=== PATIENT | male | born 1940 | race Caucasian/White ===

== ENCOUNTER 2016-10-07 16:17 | Inpatient (IN) | payer OTHER, MEDICARE ==
[2016-10-07] MEDS ORDERED: HYDROmorphONE/DILAUDID 1 MG/ML SYR ONE (16:47)
--- NOTE | 2016-10-07 16:54 | DX ---
Left Hip , 2 portable views History: Pain post trauma. Fall on ice. Findings: The femoral head is well rounded and normally located. No fracture or dislocation is identi fied. SI joints and pubic symphysis are normally aligned. The right L5 vertebral body is transitional . Impression: Nothing acute identified. 2. Left Knee, 5 views including a sunrise view History: Pain post fall on ice Findings: There is a small triangular avulsion avulsion off the superior patellar pole. The patella r emains in anatomic position. The fragment is approximately 2 cm above and posterior to its [place] loc ation. The knee joint is normally aligned. There is dense atherosclerotic vascular calcification of t he distal thigh and knee and upper calf. Impression: Quadriceps tendon avulsion.
--- NOTE | 2016-10-07 16:54 | DX ---
Left Hip , 2 portable views History: Pain post trauma. Fall on ice. Findings: The femoral head is well rounded and normally located. No fracture or dislocation is identi fied. SI joints and pubic symphysis are normally aligned. The right L5 vertebral body is transitional . Impression: Nothing acute identified. 2. Left Knee, 5 views including a sunrise view History: Pain post fall on ice Findings: There is a small triangular avulsion avulsion off the superior patellar pole. The patella r emains in anatomic position. The fragment is approximately 2 cm above and posterior to its [place] loc ation. The knee joint is normally aligned. There is dense atherosclerotic vascular calcification of t he distal thigh and knee and upper calf. Impression: Quadriceps tendon avulsion.
[2016-10-07] MEDS ORDERED: HYDROmorphONE/DILAUDID 1 MG/ML SYR IVP ONE (17:05)
--- NOTE | 2016-10-07 17:12 | EDPHY ---
H & P Stated Complaint: Left hip and knee pain Time Seen by Provider: 10/07/16 16:18 HPI/ROS: CHIEF COMPLAINT: Left knee and hip pain, inability to extend left leg HISTORY OF PRESENT ILLNESS: The patient presents to the ED with complaints of left knee and hip pain following a mechanical fall. The patient reportedly slipped and fell on ice. Since that time he has had fairly severe pain and swelling around his left knee. He denies focal numbness or weakness. He has no complaints of headache, neck pain, chest pain or difficulty breathing. He did sustain a small abrasion to the bridge of his nose from his glasses. The patient does have a remote history of atrial fibrillation but is not anticoagulated. He is currently being evaluated for surgical intervention for prostate cancer. REVIEW OF SYSTEMS: A comprehensive 10 point review of systems is otherwise negative aside from elements mentioned in the history of present illness. Source: Patient Exam Limitations: No limitations - Personal History Current Tetanus Diphtheria and Acellular Pertussis (TDAP): Yes - Medical/Surgical History Hx Asthma: No Hx Chronic Respiratory Disease: No Hx Diabetes: No Hx Cardiac Disease: No Hx Renal Disease: No Hx Cirrhosis: No Hx Alcoholism: No Hx HIV/AIDS: No Hx Splenectomy or Spleen Trauma: No - Social History Smoking Status: Never smoked - Physical Exam Exam: General Appearance: Alert, no distress Head: Atraumatic Eyes: Pupils equal, round, reactive ENT, Mouth: Superficial abrasion noted to the bridge of the nose Neck: Nontender, trachea midline Respiratory: No chest wall tender, subcutaneous air, lungs clear bilaterally Cardiovascular: Regular rate and rhythm Abdomen: Abdomen is soft and nontender, pelvis stable Skin: No lacerations, No abrasion Back: No midline T/L/S pain Extremities: Tenderness to palpation and swelling over the lateral aspect of the left thigh, inability to extend left leg secondary to pain Neurological: GCS 15, 5/5 strength noted all 4 extremities with the exception of extension left knee Constitutional: Initial Vital Signs Temperature (C) 36.7 C 10/07/16 16:26 Heart Rate 67 10/07/16 16:26 Respiratory Rate 16 10/07/16 16:26 Blood Pressure 159/95 H 10/07/16 16:26 O2 Sat (%) 93 10/07/16 16:26 O2 Delivery Mode Room Air Allergies/Adverse Reactions: No Known Allergies Allergy (Unverified 04/02/15 09:21) Home Medications: Medication Instructions Recorded Aspirin [Aspirin 325 mg (*)] 325 mg PO DAILY 04/02/15 DULoxetine [Cymbalta] 40 mg PO DAILY 04/02/15 Herbals/Supplements -Info Only 1 ea PO DAILY 04/02/15 Ibuprofen [Advil] 400 mg PO DAILY PRN 04/02/15 Ondansetron Odt [Zofran Odt] 4 mg PO Q4PRN PRN #20 tab 10/07/16 oxyCODONE/APAP 5/325 [Percocet 1 - 2 tab PO Q6-8PRN PRN #20 tab 10/07/16 5/325 (RX)] Medical Decision Making - Diagnostics Imaging: Left Hip , 2 portable views History: Pain post trauma. Fall on ice. Findings: The femoral head is well rounded and normally located. No fracture or dislocation is identified. SI joints and pubic symphysis are normally aligned. The right L5 vertebral body is transitional. Impression: Nothing acute identified. 2. Left Knee, 5 views including a sunrise view History: Pain post fall on ice Findings: There is a small triangular avulsion avulsion off the superior patellar pole. The patella remains in anatomic position. The fragment is approximately 2 cm above and posterior to its circle location. The knee joint is normally aligned. There is dense atherosclerotic vascular calcification of the distal thigh and knee and upper calf. Impression: Quadriceps tendon avulsion. Dictated By: Daniel Anne MD ED Course/Re-evaluation: The patient presents to the ED for evaluation of left leg trauma. He has no obvious fracture on exam but does have radiographic and clinical evidence of a quadriceps tendon tear. The patient will be placed in a knee immobilizer. He is given crutches. He is aware that additional workup is indicated. He will contact his regular orthopedic surgeon Dr. Juan Ball on Monday to schedule a follow-up visit. I did speak with I did speak with the Orthopedic office and informed them of the patient's workup and plan to follow up as an outpatient on Monday. The patient did have serial examinations in the ED. He is comfortable being discharged home. He is given crutches and a knee immobilizer. The patient will follow up with Orthopedics on Monday. He is given a prescription for Percocet for pain. Differential Diagnosis: Differential diagnosis considered includes hip fracture, femur fracture, knee fracture, quadriceps tendon injury Departure - Departure Disposition: Home, Routine, Self-Care Clinical Impression: Rupture of quadriceps tendon Condition: Good Instructions: Knee Immobilizer (ED) Additional Instructions: 1. Ice 30 minutes time 4 to 5 times a day over the next day. 2. Please wear knee immobilizer and use crutches. 3. Please contact Dr. Uribe's office on Monday to schedule a follow-up visit. 4. Percocet as needed for pain. 5. Zofran as needed for nausea. Referrals: Juan Ball MD [Medical Doctor] - As per Instructions
[2016-10-07] MEDS ORDERED: NS 1,000 ML IV ONE ×2 (18:21)
--- NOTE | 2016-10-07 18:30 | CPEKG ---
Heart Rate: 56 RR Interval: 1071 P-R Interval: 176 QRSD Interval: 90 QT Interval: 452 QTC Interval: 437 P Ararat: -15 QRS Ararat: 15 T Wave Ararat: 75 EKG Severity - NORMAL ECG - EKG Impression: SINUS RHYTHM Electronically Signed By: Harsha Stewart 07-Oct-2016 20:01:47
[2016-10-07 18:37] LABS: % IMMATURE GRANULYOCYTES 0.2 % (0.0-1.1); ABSOLUTE IMMATURE GRANULOCYTES 0.01 10^3/uL (0.00-0.10); ADD DIFF? NO; ADD MORPH? NO; ADD SCAN? NO; ATYPICAL LYMPHOCYTE FLAG 0 (0-99); FRAGMENT RBC FLAG 0 (0-99); HEMATOCRIT 46.2 % (40.0-51.0); HEMOGLOBIN 15.4 g/dL (13.7-17.5); LEFT SHIFT FLG 0 (0-99); LIPEMIA HEMOLYSIS FLAG 80 (0-99); MEAN CELL HEMOGLOBIN 33.6 pg (27.9-34.1); MEAN CELL HEMOGLOBIN CONCENTR. 33.3 g/dL (32.4-36.7); MEAN CELL VOLUME 100.9 fL (81.5-99.8); MEAN PLATELET VOLUME 11.4 fL (8.7-11.7); PLATELET CLUMPS FLAG 10 (0-99); PLATELET COUNT 136 10^3/uL (150-400); RED BLOOD CELL COUNT 4.58 10^6/uL (4.40-6.38); RED CELL DISTRIBUTION WIDTH 13.7 % (11.5-15.2)
[2016-10-07 18:43] LABS: ANION GAP 6 mEq/L (8-16); CALCIUM 9.3 mg/dL (8.5-10.4); CARBON DIOXIDE 29 mEq/l (22-31); CHLORIDE 103 mEq/L (97-110); CREATININE 1.2 mg/dL (0.7-1.3); GLOMERULAR FILTRATION RATE 59; GLUCOSE 100 mg/dL (70-100); POTASSIUM 4.6 mEq/L (3.5-5.2); SODIUM 138 mEq/L (134-144)
[2016-10-07] MEDS ORDERED: ONDANSETRON 4 MG/2 ML VIAL IVP ONE (20:11)
[2016-10-07] MEDS ORDERED: PROMETHAZINE HCL 25 MG/ML INJ IVP PRN (22:23)
[2016-10-07] MEDS ORDERED: ACETAMINOPHEN 325 MG TAB PO PRN (22:23)
[2016-10-07] MEDS ORDERED: HYDROmorphONE/DILAUDID 1 MG/ML SYR IVP PRN (22:23)
[2016-10-07] MEDS ORDERED: oxyCODONE IR 5 MG TAB PO PRN (22:23)
[2016-10-07] MEDS ORDERED: ONDANSETRON 4 MG/2 ML VIAL IVP PRN (22:23)
[2016-10-07] MEDS ORDERED: ONDANSETRON DISINTEGRATING 4 MG TAB PO PRN (22:23)
[2016-10-07] MEDS ORDERED: IBUPROFEN 200 MG TAB PO PRN (22:25)
[2016-10-07] MEDS ORDERED: NS 1,000 ML IV SCH (22:30)
--- NOTE | 2016-10-07 23:14 | PDGENHP ---
History and Physical - Chief Complaint fall/knee pain - History of Present Illness 75 yo M with PMH of prostate and laryngeal cancer presenting s/p mechanical fall at home with significant knee and hip pain. Patient notes he had been out of town for several days and did not realize how icy it was at his home, and walked outside to take care of his dog, when he slipped and fell on ice. He immediately had severe pain involving his left knee and quads as well as his left hip. He was seen in ER, put in a knee brace and had planned to dc home when he went to stand and had such severe pain that he had a syncopal event. He was noted to be bradycardic and hypotensive shortly after the episode. He states he was aware he was going to faint and believe it was due to the severe pain. He has not had similar episodes in the past. He does not have any chest pain or palpitations currently. He does continue to have pain in his left knee region that is severe with really any kind of movement. History Information - Allergies/Home Medication List Allergies/Adverse Reactions: No Known Allergies Allergy (Unverified 04/02/15 09:21) Home Medications: Aspirin [Aspirin 325 mg (*)] 325 mg PO DAILY 04/02/15 [Last Taken 10/03/16] DULoxetine [Cymbalta] 40 mg PO DAILY 04/02/15 [Last Taken 10/07/16] Herbals/Supplements -Info Only 1 ea PO DAILY 04/02/15 [Last Taken 04/01/15] Ibuprofen [Advil] 400 mg PO DAILY PRN 04/02/15 [Last Taken Unknown] Metoprolol Tartrate [Lopressor 25 mg (*)] 25 mg PO BID 10/07/16 [Last Taken 11/18] Zolpidem Tartrate [Ambien 5MG (*)] 10 mg PO HS 10/07/16 [Last Taken Unknown] I have personally reviewed and updated: family history, medical history, social history, surgical history - Past Medical History atrial fibrillation, cancer (laryngeal s/p xrt, prostate), hyperlipidemia - Surgical History Additional surgical history: rotator cuff surgery - Family History Positive for: cancer - Social History Smoking Status: Never smoked Alcohol Use: Rarely Drug Use: None Additional social history: , retired, was previously on the [employer] board Review of Systems ROS: 10pt was reviewed & negative except for what was stated in HPI & below Physical Exam Temp Pulse Resp BP Pulse Ox 36.3 C 95 16 137/93 H 98 10/07/16 20:59 10/07/16 20:59 10/07/16 20:59 10/07/16 21:15 10/07/16 20:59 O2 (L/minute) 2 Constitutional: no apparent distress, appears nourished Eyes: PERRL Ears, Nose, Mouth, Throat: moist mucous membranes Cardiovascular: regular rate and rhythym, no murmur, rub, or gallop Respiratory: no respiratory distress, no rales or rhonchi Gastrointestinal: normoactive bowel sounds, soft, non-tender abdomen Skin: warm, normal color Musculoskeletal: joint effusion (left), No normal joint ROM Neurologic: AAOx3, sensation intact bilaterally Psychiatric: interacting appropriately, not anxious, not encephalopathic Lab Data & Imaging Review 10/07/16 16:20 10/07/16 16:20 WBC 4.86 10^3/uL (3.80-9.50) 10/07/16 16:20 RBC 4.58 10^6/uL (4.40-6.38) 10/07/16 16:20 Hgb 15.4 g/dL (13.7-17.5) 10/07/16 16:20 POC Hgb 16.3 gm/dL (14.5-17.3) 10/07/16 18:21 Hct 46.2 % (40.0-51.0) 10/07/16 16:20 POC Hct 48 % (42.8-50.6) 10/07/16 18:21 MCV 100.9 fL (81.5-99.8) H 10/07/16 16:20 MCH 33.6 pg (27.9-34.1) 10/07/16 16:20 MCHC 33.3 g/dL (32.4-36.7) 10/07/16 16:20 RDW 13.7 % (11.5-15.2) 10/07/16 16:20 Plt Count 136 10^3/uL (150-400) L 10/07/16 16:20 MPV 11.4 fL (8.7-11.7) 10/07/16 16:20 Neut % (Auto) 61.3 % (39.3-74.2) 10/07/16 16:20 Lymph % (Auto) 21.2 % (15.0-45.0) 10/07/16 16:20 [place] % (Auto) 13.8 % (4.5-13.0) H 10/07/16 16:20 Eos % (Auto) 3.1 % (0.6-7.6) 10/07/16 16:20 Baso % (Auto) 0.4 % (0.3-1.7) 10/07/16 16:20 Nucleat RBC Rel Count 0.0 % (0.0-0.2) 10/07/16 16:20 Absolute Neuts (auto) 2.98 10^3/uL (1.70-6.50) 10/07/16 16:20 Absolute Lymphs (auto) 1.03 10^3/uL (1.00-3.00) 10/07/16 16:20 Absolute Monos (auto) 0.67 10^3/uL (0.30-0.80) 10/07/16 16:20 Absolute Eos (auto) 0.15 10^3/uL (0.03-0.40) 10/07/16 16:20 Absolute Basos (auto) 0.02 10^3/uL (0.02-0.10) 10/07/16 16:20 Absolute Nucleated RBC 0.00 10^3/uL (0-0.01) 10/07/16 16:20 Immature Gran % 0.2 % (0.0-1.1) 10/07/16 16:20 Immature Gran # 0.01 10^3/uL (0.00-0.10) 10/07/16 16:20 POC Sodium 140 mEq/L (134-144) 10/07/16 18:21 Sodium 138 mEq/L (134-144) 10/07/16 16:20 POC Potassium 4.7 mEq/L (3.3-5.0) 10/07/16 18:21 Potassium 4.6 mEq/L (3.5-5.2) 10/07/16 16:20 POC Chloride 105 mEq/L (96-108) 10/07/16 18:21 Chloride 103 mEq/L (97-110) 10/07/16 16:20 Carbon Dioxide 29 mEq/l (22-31) 10/07/16 16:20 Anion Gap 6 mEq/L (8-16) 10/07/16 16:20 POC BUN 32 mg/dL (7-23) H 10/07/16 18:21 BUN 34 mg/dL (7-23) H 10/07/16 16:20 Creatinine 1.2 mg/dL (0.7-1.3) 10/07/16 16:20 POC Creatinine 1.1 mg/dL (0.8-1.5) 10/07/16 18:21 Estimated GFR 59 10/07/16 16:20 Glucose 100 mg/dL (70-100) 10/07/16 16:20 POC Glucose 134 mg/dL (70-100) H 10/07/16 18:21 Calcium 9.3 mg/dL (8.5-10.4) 10/07/16 16:20 Visualized and Interpreted imaging results: Yes Interpretation: quadriceps tendon avulsion Visualized and Interpreted EKG results: Yes EKG Interpretation: Positive for: normal sinsus rhythm Assessment & Plan Assessment: Quadriceps tendon rupture (Acute) 75 yo M presenting s/p mechanical fall with quadriceps tendon rupture and syncopal event # syncope: in the setting of extreme pain and likely vasovagal with likely component of orthostasis as well. 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 Will monitor on tele, obtain trop, echo in am. # quadriceps tendon rupture: patient to f/u with Dr. Moore on Monday, for now knee immobilizer at all time and WBAT with crutches. Will have PT/OT evaluate given inability to ambulate this evening # prostate cancer: with surgery scheduled with Dr. Gutierrez this week # acute pain: 2/2 trauma as above, continue prn morphine IV and oral for now, other narcotics have led to nausea # dispo: observation, will likely dc in am if able to ambulate safely and syncope w/u unremarkable Patient new to my care. Old records reviewed and summarized as above. Care plan reviewed with ER doctor.
[2016-10-07] MEDS: ZOLPIDEM TARTRATE 5 MG TAB PO SCH (23:40)
[2016-10-08 03:14] LABS: COLOR YELLOW; LEUKOCYTE ESTERASE,URINE NEGATIVE (NEGATIVE); NITRITE,URINE NEGATIVE (NEGATIVE)
[2016-10-08 04:55] LABS: % IMMATURE GRANULYOCYTES 0.4 % (0.0-1.1); ABSOLUTE IMMATURE GRANULOCYTES 0.02 10^3/uL (0.00-0.10); ADD DIFF? NO; ADD MORPH? NO; ADD SCAN? NO; ATYPICAL LYMPHOCYTE FLAG 10 (0-99); FRAGMENT RBC FLAG 0 (0-99); HEMATOCRIT 38.3 % (40.0-51.0); HEMOGLOBIN 12.8 g/dL (13.7-17.5); LEFT SHIFT FLG 0 (0-99); LIPEMIA HEMOLYSIS FLAG 80 (0-99); MEAN CELL HEMOGLOBIN 33.5 pg (27.9-34.1); MEAN CELL HEMOGLOBIN CONCENTR. 33.4 g/dL (32.4-36.7); MEAN CELL VOLUME 100.3 fL (81.5-99.8); MEAN PLATELET VOLUME 10.7 fL (8.7-11.7); PLATELET CLUMPS FLAG 0 (0-99); PLATELET COUNT 139 10^3/uL (150-400); RED BLOOD CELL COUNT 3.82 10^6/uL (4.40-6.38); RED CELL DISTRIBUTION WIDTH 13.5 % (11.5-15.2)
[2016-10-08 05:09] LABS: ANION GAP 6 mEq/L (8-16); CALCIUM 8.2 mg/dL (8.5-10.4); CARBON DIOXIDE 25 mEq/l (22-31); CHLORIDE 108 mEq/L (97-110); GLOMERULAR FILTRATION RATE > 60; GLUCOSE 95 mg/dL (70-100); POTASSIUM 4.5 mEq/L (3.5-5.2); SODIUM 139 mEq/L (134-144)
[2016-10-08 05:21] LABS: TROPONIN I < 0.012 ng/mL (0-0.034)
[2016-10-08] MEDS: DULoxetine 20 MG CAP PO SCH (08:29)
[2016-10-08] MEDS: ENOXAPARIN 40 MG/0.4 ML SYR SC SCH (08:29)
[2016-10-08] MEDS ORDERED: METOPROLOL TARTRATE 25 MG TAB PO SCH (09:00)
[2016-10-08] MEDS ORDERED: ASPIRIN 325 MG TAB PO SCH (09:00)
[2016-10-08] MEDS ORDERED: NS BOLUS 1000 ML (Wide open) IV ONE (11:20)
[2016-10-08] MEDS ORDERED: LACTULOSE 20 GM/30 ML UDCUP PO PRN (12:10)
[2016-10-08] MEDS ORDERED: MAGNESIUM HYDROXIDE 30 ML UDCUP PO PRN (12:10)
[2016-10-08] MEDS ORDERED: POLYETHYLENE GLYCOL 3350 17 GM PKT PO PRN (12:10)
[2016-10-08] MEDS ORDERED: BISACODYL 10 MG SUPP PR PRN (12:10)
--- NOTE | 2016-10-08 12:49 | GCON ---
[f rep st] CONSULTATION ORTHOPEDIC CONSULT DATE OF CONSULTATION: 10/08/2016 CHIEF COMPLAINT: Left knee pain. DIAGNOSIS: Suspicious for quad tendon tear. ASSOCIATED DIAGNOSES: 1. Prostate cancer. 2. Pending prostatectomy by da Terrell robot on Monday in a few days. HISTORY OF PRESENT ILLNESS: Please see details of ER and admitting H and P. A 75-year-old male with a past medical history of prostate cancer. Sustained a mechanical fall at home on ice. His found him in straight legged prone position, so he may have had a contusion to the anterior aspect of the knee. He did not describe falling backwards and having his knee bent in a backwards heel to butt position. He was unable to walk after that. He was seen in the ER , and then had a syncopal event which indicated his admission. Otherwise he is fairly healthy and exercises regularly. He had no prior knee pain. PHYSICAL EXAMINATION: Pertinent orthopedic examination reveals a well- appearing gentleman. Swollen anterior left knee. A 20 degree extensor lag. He had passive extension to 5 degrees and passive flexion to 30 degrees with pain. He had no evidence of cellulitis. No blistering of the anterior knee skin. He had intact tib ant, gastrocsoleus, EHL, FHL, bilateral feet. Pelvis was stable. Bilateral upper extremities without any pain. His was at the bedside. IMAGING: X-rays of his knee show a small chip off the superior pole of the patella. Effusion radiographically. No MRI was ordered. IMPRESSION AND RECOMMENDATION: Left knee pain. Suspicious for quad tendon tear. I would like to get an MRI for anatomic imaging to see what percentage of the quad tendon is torn. My suspicion is that it is a high-grade partial to full-thickness tear. Meanwhile, he should do active range of motion exercises with heel slides and knee extension exercises. Foot exercises. Elevation. Knee immobilizer when he is out of bed. MRI has been ordered. Assuming that he is in a dorsal lithotomy position with slight knee flexion for the da Terrell robotic surgery on Monday, I do not see any contraindication to postpone the surgery and prostatectomy from an orthopedic standpoint. He should follow up in [facility] Orth[facility] clinic sometime on Monday. He does have a preop appointment with Dr. Gutierrez on Monday afternoon and will confer with the Urology Department. TIME SPENT: Half hour at the bedside. /[id number]/MODL MTDD
--- NOTE | 2016-10-08 13:01 | ECHO ---
[id number] + + [address] : : [place] [address] : : [phone] + + Adult Echocardiographic Report + --+ :Name: GAMA SELBY Ayana Date: 10/08/2016 11:19 AM : : Hospital Admission Number: [id number] Location: 2 06: :: 1940 Gender: Male Height: 77 in : :Age: 75 yrs Race: WH Weight: 229 lb : :Reason For Study: syncope : : BSA: 2.4 meters2 : + --+ MMode/2D Measurements & Calculations IVSd: 1.3 cm LVIDd: 4.9 cm EDV(Teich): 111.4 ml Ao root diam: 4.2 cm LA dimension: 3.6 cm Normal Measurement Values: + + :LVIDd (3.5-5.7cm) IVSd (0.6-1.1cm) LVPWd (0.6-1.1cm) Aortic Root (2.0-3.7cm)Left Atrium (1.5-4.0cm): :LV Vol(d) (76-115ml) LV Vol(s) (29-48ml) Ejec Fraction (50-65%)PV Андрей (0.6- 1.2m/s) TV Андрей (0.4-1.0m/s) : :MV E Андрей (0.8-1.0m/s)MV A Андрей (0.3-1.0m/s)LVOT Андрей (0.7-1.2m/s) Asc Ao Андрей ( 0.9-1.8m/s) : + + Doppler Measurements & Calculations MV E max андрей: 52.3 cm/sec Ao V2 max: 119.4 cm/sec TR max андрей: 226.7 cm/sec MV A max андрей: 65.6 cm/sec Ao max P.7 mmHg TR max P.6 mmHg MV E/A: 0.80 RAP systole: 5.0 mmHg RVSP(TR): 25.6 mmHg Left Ventricle The left ventricle is normal in size. There is mild concentric left ventricular hypertrophy. Left ventricular systolic function is normal. Ejection Fraction = 70-75%. No regional wall motion abnormalities noted. Right Ventricle The right ventricle is normal in size and function. Atria The left atrial size is normal. Right atrial size is normal. Mitral Valve The mitral valve is normal in structure and function. There is no evidence of mitral valve prolapse. There is no mitral valve stenosis. There is trace mitral regurgitation. Tricuspid Valve Normal tricuspid valve. There is mild tricuspid regurgitation. Right ventricular systolic pressure is normal. Aortic Valve The aortic valve opens well. Mild Aortic Valve Calcification. There is no aortic stenosis. There is no aortic insufficiency. Pulmonic Valve The pulmonic valve is not well visualized. Trace pulmonic valvular regurgitation. Great Vessels The aortic root is normal size. Pericardium/Pleural There is no pericardial effusion. There is a fat pad seen. Conclusion A complete two-dimensional transthoracic echocardiogram was performed (2D, M-mode, Doppler and color flow Doppler). (1) Left ventricular systolic ejection fraction was normal (70-75%) - normal wall motion (2) Mild concentric left ventricular hypertrophy (3) Diastolic function was not clearly assessed (4) Normal right ventricular size and function (5) Normal atrial dimensions (6) Physiologic mitral regurgitation (7) Trileaflet aortic valve with mild sclerosis but no stenosis or insufficiency (8) Mild tricuspid regurgitation - RVSP was normal (9) Poor visualization of the pulmonic valve with physilogic insufficiency (10) No comparison echocardiograms Final Reading Physician: Laverne Alfredo signed on 10/08/2016 01:00 PM Ordering Physician: Igor Navarro Performed By: Fartun Schaefer, NINI
--- NOTE | 2016-10-08 13:11 | HOSPPROG ---
Hospitalist Progress Note Assessment/Plan: 75 yo M presenting s/p mechanical fall with quadriceps tendon rupture and syncopal event # syncope acute - in the emergency department in the setting of extreme pain vital signs on the floor also confirm orthostasis He does have a hx of NSVT telemetry (personally reviewed and interpreted) shows sinus rhythm oxygen saturations 94% on room air suspect this is multifactorial volume and a potential vasovagal response to pain - IV fluid bolus this morning as symptomatic with PT - hold metoprolol - continue telemetry - treat pain # quadriceps tendon rupture- patient with markedly worsening pain overnight and swelling- Dr. Andre consulted for evaluation - MRI ordered - continue pain control # macrocytic anemia- H& H with abrupt drop to - suspect related to fluid resuscitation - recheck CBC in the morning # prostate cancer- with surgery scheduled with Dr. Gutierrez this week- attempting to optimize hemodynamic parameters so she is cleared for surgery # acute pain- 2/2 trauma as above, continue prn morphine IV and oral for now- other narcotics have led to nausea # history of PVCs- holding metoprolol today follow telemetry # dispo- greater than 2 midnights as requiring IV pain medications for control and orthopedic consultation for recommendations related to quadriceps injury I have discussed the case with Dr. Andre he will consult and leave recommendations Subjective: pain in knee is unbearable Objective: Vital Signs Temp Pulse Resp BP Pulse Ox 36.9 C 64 17 112/72 97 10/08/16 12:54 10/08/16 12:54 10/08/16 12:54 10/08/16 12:54 10/08/16 12:54 Laboratory Results 10/08/16 04:12 10/08/16 04:12 10/07/16 10/08/16 10/09/16 05:59 05:59 05:59 Intake Total 3113 240 Output Total 975 325 Balance 2138 -85 - Physical Exam Constitutional: appears nourished Eyes: anicteric sclera Ears, Nose, Mouth, Throat: moist mucous membranes Cardiovascular: regular rate and rhythym Respiratory: no respiratory distress, no rales or rhonchi Gastrointestinal: normoactive bowel sounds, soft, non-tender abdomen Genitourinary: no bladder fullness Skin: warm, normal color Musculoskeletal: other ( dramatic left knee swelling) Neurologic: AAOx3 Psychiatric: interacting appropriately Lymph, Heme, Immunologic: no cervical LAD ICD10 Worksheet Patient Problems: Problems Problem Status Diagnosed Quadriceps tendon rupture Acute Transient global amnesia Acute
[2016-10-08] MEDS ORDERED: DIAZEPAM 2 MG TAB PO ONE (13:22)
[2016-10-08] MEDS: traMADol 50 MG TAB PO PRN ×2 (14:36→21:19)
[2016-10-08] MEDS: ZOLPIDEM TARTRATE 5 MG TAB PO SCH (21:20)
[2016-10-08] MEDS: SENNOSIDES/DOCUSATE SODIUM TAB PO SCH (21:20)
[2016-10-09 05:34] LABS: HEMATOCRIT 37.9 % (40.0-51.0); HEMOGLOBIN 12.5 g/dL (13.7-17.5); MEAN CELL HEMOGLOBIN 33.6 pg (27.9-34.1); MEAN CELL VOLUME 101.9 fL (81.5-99.8); RED BLOOD CELL COUNT 3.72 10^6/uL (4.40-6.38); RED CELL DISTRIBUTION WIDTH 13.8 % (11.5-15.2)
[2016-10-09] MEDS: ENOXAPARIN 40 MG/0.4 ML SYR SC SCH (08:12)
[2016-10-09] MEDS: SENNOSIDES/DOCUSATE SODIUM TAB PO SCH (08:12)
[2016-10-09] MEDS: DULoxetine 20 MG CAP PO SCH (08:12)
[2016-10-09 12:32] VITALS: BP 137/78; PULSE 78; RESP 16; TEMP 98.4; O2SAT 91
[2016-10-09] MEDS ORDERED: ENOXAPARIN 100 MG/ML SYR SC SCH ×2 (14:30→21:00)
[2016-10-09] MEDS ORDERED: ENOXAPARIN 60 MG/0.6 ML SYR SC ONE (15:00)
--- NOTE | 2016-10-09 15:13 | GDS ---
[f rep st] DISCHARGE SUMMARY NEW AND ACUTE DIAGNOSES: 1. Left quadriceps tendon tear, nearly fully ruptured tendon from the patella. 2. Prostatic carcinoma. 3. Anticoagulation for deep venous thrombosis prevention. 4. Acute pain secondary to knee pain. 5. Vasovagal syncope secondary to pain. CONSULTATION: Orthopedics with Dr. Lola Andre. PROCEDURE: Lower extremity MRI showing in nearly complete rupture of the quadriceps tendon from the patella. HOSPITAL COURSE: This is a 75-year-old gentleman who slipped on the ice and fell, resulting in a con tact injury to his left knee with resulting rupture of the left quadriceps tendon from the patella. MRI confirmed a near complete rupture of the tendon. Orthopedic consultation indicated that the knee could be placed in a knee brace with the use of crutches and no weightbearing to the leg as a satisf actory treatment until the gentleman could have his planned prostatectomy. The gentleman has a planned prostatectomy on 10/12/2016 Dr. Danny Gutierrez. Orthopedics, Dr. Andre, nas cates that the surgery of his left knee can wait until he has his prostatectomy. This consultation w as obtained and group consultation with Dr. Jones and Dr. Andre and is noted in the orthopedist's con sultation note. Anticoagulation at this point will be necessary to prevent a DVT. His left quadriceps injury is esse ntially full immobilization of his left leg. Thus, he is at very significant risk of a DVT, and will be placed on full-dose anticoagulation with Lovenox preoperatively. Ultimately, the anticoagulation will need to be stopped for the prostatectomy. It can be restarted after consultation with both Ort raimundo and Urology postoperative of the prostatectomy. His mild degree of dehydration was resolved with IV fluids. Acute pain was managed with IV morphine and tramadol, and will be managed with NSAIDs and some narcotic as needed at home. DISCHARGE MEDICATIONS: Ultram 50 mg p.o. q.6 hours p.r.n. pain, Lovenox 100 mg subcu b.i.d. (#6), Pe rcocet 5/325 mg 1-2 tablets p.o. q.6-8h. p.r.n. pain, Senokot-S 1-2 tablets p.o. b.i.d. (#10), Zofran 4 mg p.o. q.4 hours p.r.n. nausea (#20), metoprolol tartrate 25 mg b.i.d., Ambien 10 mg p.o. q.h.s. p.r.n. sleep, ASA 325 mg daily, ibuprofen 400 mg p.o. daily p.r.n. PLAN: The andrew will follow up with Dr. Danny Gutierrez on 10/10/2016. He has a plan followup with Dr. Andre in 3-5 days. Note that he has a scheduled prostatectomy on 10/12/[address] Danny Gutierrez. PCP is Dr. Peng Jasso, Dr. Andre, and Dr. Danny Gutierrez. TIME SPENT: This discharge required 55 minutes, greater than 50% to sexual assault counsellor and coordinate the shanae bonilla's care. I have spoken with Radiology and reviewed his MRI and spoke with Dr. Jones, the on-call urologist. /[id number]/MODL
--- NOTE | 2016-10-10 09:03 | MR ---
MRI Lower Extremity, Left Knee History: Left knee pain. Quadriceps tendon tear. Assess percentage. Technique: MRI was performed of the left knee using a 3 Kya MRI system. Patient was scanned in the large flex coil secondary to left knee swelling and could not fit in the knee coil. Sagittal, coronal , and axial imaging was obtained with standard imaging sequences. Findings: Extensor mechanism: There is a large defect involving nearly all of the quadriceps tendon. There is c omplete tear with retraction of 1 to 1.5 cm of the rectus femoris and vastus intermedius portion of t he central tendon and vastus medialis portion. There is an intact portion of the vastus lateralis ten don insertion to the lateral aspect of the superior pole of the patella. There is underlying tendinop athy in the quadriceps tendon. Edema is seen in the distal musculotendinous junction of the quadricep s musculature. Moderate tendinopathy in the proximal patellar tendon without attenuation. Mild cartil age signal abnormality is seen in the patella and trochlear groove without significant attenuation. General: Moderate suprapatellar joint effusion. No evidence for bone contusion or occult fracture. Ligaments and tendons: Anterior cruciate and posterior cruciate ligaments are intact. There is mild e imelda superficial to the medial collateral ligament. Pes anserinus is unremarkable. There is edema sup erficial to the iliotibial band. Fibular collateral ligament and biceps femoris are intact. There is moderate abnormal signal intensity in the popliteus tendon without attenuation. Menisci and cartilage: Degenerative signal is seen in the medial meniscus which extends to the inferi or articular surface in the posterior horn and at the junction with the body. Radial tear is seen in the body of the lateral meniscus and upper surface tear at the junction of the anterior horn and body . Cartilage signal abnormality is seen in the medial and lateral compartment without significant atte nuation. Impression: 1. Near complete tear of the quadriceps tendon retracted 1 to 1.5 cm. Only a small amount of residual vastus lateralis portion of the lateral aspect of the quadriceps tendon remains intact. Underlying t endinopathy. Greater than 80% of the tendon is torn. 2. Moderate tendinopathy patellar tendon. Grade I chondromalacia patellofemoral compartment. 3. Degenerative undersurface tear posterior horn medial meniscus. 4. Radial tear body of the lateral meniscus and small upper surface tear at the anterior horn. 5. Tendinopathy popliteus tendon. 6. Moderate suprapatellar joint effusion.
== END 2016-10-09 15:43 | disposition home or self-care (01) | DRG 538 ==
LOC: EDUNIT# → F2W 20:42 → OBSVTOIN 10-08 13:18
PROVIDERS: ADMIT Internal Medicine; ATTEND Internal Medicine Pulmonary Disease
PROC: 2W3MX1Z Immobilization of Left Lower Extremity using Splint (ICD-10-PCS; principal; 2016-10-08)
DX: S76.112A Strain of left quadriceps muscle, fascia and tendon, initial encounter (principal); C61 Malignant neoplasm of prostate; G89.11 Acute pain due to trauma; R55 Syncope and collapse; I48.91 Unspecified atrial fibrillation; W01.0XXA Fall on same level from slipping, tripping and stumbling without subsequent striking against object, initial encounter; Y92.008 Other place in unspecified non-institutional (private) residence as the place of occurrence of the external cause
CPT/HCPCS: 82947-QW; 96374; 97116-GP; 97162-GP; 97165-GO; G0378; G8978-GP-CJ; G8978-GP-CK; G8979-GP-CJ; G8980-GP-CJ; G8987-GO-CI; G8988-GO-CI; G8989-GO-CI; J1170; J1650; J2405; L1830

== ENCOUNTER 2016-10-13 07:46 | Inpatient (IN) | payer OTHER, MEDICARE ==
--- NOTE | 2016-10-12 17:31 | GHP ---
[f rep st] PREOP HISTORY AND PHYSICAL Amended report ADMISSION DIAGNOSIS: Prostate cancer. HISTORY OF PRESENT ILLNESS: This 75-year-old gentleman was seen by me to be assessed for nodular prostate. He had a PSA of 1.73, 4Kscore of 31%. [place] score of 7, prostate cancer, on the biopsy of 08/17/2016. He has had a Prolaris of 5.1, which is an aggressive genomic testing for his prostate cancer. He has had previous TUR of the prostate. He presently has no medications. He has had no family history of prostate cancer. AUA score is 5 with nocturia 1 time per night and he has relatively normal/adequate sexual function preoperatively. He had a [place] score 7, cancer with perineural invasion. 4Kscore 31%. Prolaris 5.1. Options and second opinions have been obtained and he is admitted for robotic- assisted radical prostatectomy. He has developed a left quadriceps tendon tear that will need to be repaired, and increased risk for DVT, pulmonary embolus, have been discussed. He has been on Lovenox preop. He will be on that postop. Risk of bleeding, infection have all been discussed and he appears to be well informed. REVIEW OF SYSTEMS: Negative cardiac, respiratory, GI, or endocrine. PHYSICAL EXAM: VITAL SIGNS: Stable. CHEST: Clear. HEART: Regular rate and rhythm. ABDOMEN: Normal. No organomegaly, rebound, or guarding. PROSTATE: He does have a firm nodular area on the right side of the prostate. DATA: The biopsies of the prostate revealed all of his cancer being confined to the right side. [place] score 3 + 4 = 7. Perineural invasion. PLAN: At the present time, he is a stage T2a, Dorian 7 prostate cancer and is to undergo a bilateral pelvic lymphadenectomy and radical retropubic prostatectomy, robotically assisted. Written and verbal consent has been obtained and he appears to be well informed on the above procedure. I discussed the case with Dr. Jasso and the orthopedic surgeons with respect to his orthopedic injury. The plans have been outlined with the patient on the course of treatment of all these problems. /[id number]/MODL Add acc#, 10/13/16, antonio AGUILAR
[2016-10-13] MEDS ORDERED: ceFAZolin 2 GM/DEXTROSE 100 ML IV ONE (08:30)
[2016-10-13] MEDS ORDERED: BUPIVACAINE 0.5% 30 ML SDV ONE (08:35)
[2016-10-13] MEDS ORDERED: SKIN ADHESIVE (DERMABOND) 1 EACH TP ONE (08:35)
[2016-10-13] MEDS ORDERED: PROPOFOL 200 MG/20 ML VIAL ONE (09:05)
[2016-10-13] MEDS ORDERED: fentaNYL 250 MCG/5 ML INJ ONE (09:05)
[2016-10-13] MEDS ORDERED: ROCURONIUM 50 MG/5 ML VIAL ONE ×4 (09:12→12:02)
[2016-10-13] MEDS ORDERED: DEXAMETHASONE 4 MG/ML VIAL ONE (09:12)
[2016-10-13] MEDS ORDERED: ONDANSETRON 4 MG/2 ML VIAL ONE ×2 (09:12→14:23)
[2016-10-13] MEDS ORDERED: LIDOCAINE 2% 5 ML SDV ONE (09:12)
[2016-10-13] MEDS ORDERED: LIDOCAINE HCL 160 MG/4 ML LTA KIT TP ONE (09:58)
[2016-10-13] MEDS ORDERED: GLYCOPYRROLATE 0.2 MG/1 ML VIAL ONE (09:58)
[2016-10-13] MEDS ORDERED: METOPROLOL TARTRATE 5 MG/5 ML INJ ONE (10:09)
[2016-10-13] MEDS ORDERED: HYDROmorphONE/DILAUDID 2 MG/ML SYR ONE (11:51)
[2016-10-13] MEDS ORDERED: THROMBIN(HUM PLAS)/FIBRINOG/CA 5 ML VIAL TP ONE (11:52)
[2016-10-13] MEDS ORDERED: SUGAMMADEX SODIUM 200 MG/2 ML VIAL IVP ONE (12:28)
[2016-10-13] MEDS ORDERED: fentaNYL 100 MCG/2 ML INJ ONE (13:09)
--- NOTE | 2016-10-13 13:35 | GOP ---
[f rep st] OPERATIVE REPORT DATE OF OPERATION: 10/13/2016 SURGEON: Danny Gutierrez MD LAST PULLER: Hayden ANESTHESIA: General. In the operating room, was Jessica Chaudhary Logan. ANESTHESIOLOGIST: Dung PREOPERATIVE DIAGNOSIS: Adenocarcinoma of the prostate. POSTOPERATIVE DIAGNOSIS: Adenocarcinoma of the prostate. PROCEDURE PERFORMED: Robotic-assisted bilateral pelvic lymphadenectomy and radical retropubic prosta tectomy. FINDINGS: SPECIMENS: Prostate and lymph nodes. ESTIMATED BLOOD LOSS: Per Anesthesia 150 mL. DESCRIPTION OF PROCEDURE: After undergoing general anesthesia, prepped and draped in normal sterile fashion in the robot position. He had a Veress needle placed in the supraumbilical site and insuffla tion of the abdomen to 15 mmHg pressure was done with CO2 and then at that point, I placed three 8 mm robotic ports and an enrichment assistant 12 mm port. Docked the robot, and then inspection revealed adhesions of the sigmoid colon to the left side of the abdomen and they were taken down sharply, and then with appropriate retraction I was able to incise the peritoneum, and identify the vas deferens on both right and left sides and the seminal vesicles. Of interest, the right side of the prostate had a lot of inflammatory reaction in that posterior spa ce, so the dissection was a bit tedious. He had been on Lovenox, which was continued through last ni ght in the preoperative period and it seemed that he had a bit more oozing of blood than what we norm ally see. At that point the ampulla of vas deferens identified and Hem-o-loks were used to provide h emostasis. Within the seminal vesicles on the right and left sides, I developed a space between the rectum and t he prostate. At that point, I dropped down the bladder in the normal fashion with electrocautery pro viding hemostasis, and identified the endopelvic fascia on the right and left sides, and then the pub oprostatic ligaments. These were all taken down sharply and then could identify the apex of the pros farris, and ligated the deep dorsal vein complex with an 0 Vicryl, 2 of those, M stitch technique and t hen at that point, focused the attention to the bladder neck. He had a previous TURP and his bladder neck was somewhat fibrous, so I was able to go through and he had a large protruding lobe on the left side that came into the bladder neck fossa. I was able to go through the prior TUR bladder neck scarred area and then identified the space between the bladder an d the seminal vesicles, brought the vesicles up and then because of the bleeding and oozing that he h ad, I elected to use the tissue sealer device. So, I gently dissected off as much of the neurovascul ar bundles on the left side of the prostate and took those down with that device, and then on the rig ht side an inflammatory reaction was noted to go beyond the prostate, so I was able to go and get goo d margins and then after mobilizing the prostate in toto, I confirmed there was no injury to the rect um. Focused our attention to the apex of the prostate that was taken down sharply, hemostasis with electr ocautery. The specimen removed to the side. At that point, it appeared that the left neurovascular bundle was intact, and his bladder neck was quite patulous, so I closed it so that it would accommoda te a 30-Occitan [place] sound with 3-0 Vicryl [id number] on each of the right and left lateral parts of the bladder and then at that point, I used a Jonathon stitch V-loc to bring the [place]illi[place] d own to the rectourethralis, and then an anastomosis with a 4-0 Monocryl was used in a running fashion bridged with a 20-Occitan Olivera catheter. Irrigated and noted to be watertight. I used Biologic glu e around the anastomosis, and then the bilateral pelvic lymphadenectomy. I did the right side first because that was the side of the malignancy from the midaspect of the shun c vein, up to the bifurcation, down to the obturator nerve. From that space, lymph nodes were taken out. It was mainly fatty tissue with Hem-o-Locs used to provide hemostasis, and then the same time wa s done on the left side. The specimens were extracted from the abdomen via a bag, and then the prost ate was placed in an extraction bag. I placed a Giovany-Kuhn drain in the space of Retzius and brought it through the 8 mm port on the le ft abdominal side, sewn in place with a 3-0 silk. I did decrease the bladder pressure to 5 mmHg and t here was no significant pooling of blood and then at that point, the fascial closure device closed th e 12 mm enrichment assistant port, then at that point undocked the robot and decreased insufflation, opened the supraumbilical site so I could extract the prostate with its bag, and then closed the fascia with a r unning 0 Vicryl. Hemostasis provided and 4-0 Monocryl was used to approximate the skin edges and Juan mabond placed, and local anesthesia was provided. He tolerated the procedure well and will be admitted for postoperative care. Postop day 1 if there i s no significant drainage, would consider placing him back on the Lovenox because of his recent quadr iceps tendon tear and edema that he had preoperative of his left leg pain. He had a negative Homans sign, and no calf pain or pain over the iliac vein in the preop area. I will discuss the findings wi th his . No complications encountered. Specimens sent to Pathology. /[id number]/MODL
[2016-10-13] MEDS ORDERED: ONDANSETRON DISINTEGRATING 4 MG TAB PO PRN (13:45)
[2016-10-13] MEDS ORDERED: ACETAMINOPHEN 325 MG TAB PO PRN (13:45)
[2016-10-13] MEDS ORDERED: HYDROCODONE/APAP 5/325 TAB ONE (14:37)
[2016-10-13] MEDS: D5W 1/2 NS W/ 20 KCl/L 1,000 ML IV SCH ×2 (16:24→21:36)
[2016-10-13] MEDS ORDERED: HYDROmorphONE/DILAUDID 6 MG/30 ML PCA IV PRN (17:14)
[2016-10-13] MEDS ORDERED: NALOXONE HCL 0.4 MG/ML INJ IVP PRN (17:14)
[2016-10-13] MEDS ORDERED: ONDANSETRON 4 MG/2 ML VIAL IVP PRN (17:14)
[2016-10-13] MEDS: ONDANSETRON 4 MG/2 ML VIAL IVP PRN ×2 (18:06→21:34)
[2016-10-13] MEDS: HYDROCODONE/APAP 5/325 TAB PO PRN ×2 (18:06→21:35)
[2016-10-13] MEDS ORDERED: ZOLPIDEM TARTRATE 5 MG TAB PO PRN (21:29)
[2016-10-14] MEDS: ONDANSETRON 4 MG/2 ML VIAL IVP PRN ×3 (01:43→21:05)
[2016-10-14] MEDS: HYDROCODONE/APAP 5/325 TAB PO PRN ×4 (01:44→21:05)
[2016-10-14] MEDS: D5W 1/2 NS W/ 20 KCl/L 1,000 ML IV SCH ×3 (05:14→21:19)
[2016-10-14 05:16] LABS: % IMMATURE GRANULYOCYTES 0.5 % (0.0-1.1); ABSOLUTE IMMATURE GRANULOCYTES 0.04 10^3/uL (0.00-0.10); ADD DIFF? NO; ADD MORPH? NO; ADD SCAN? NO; ATYPICAL LYMPHOCYTE FLAG 0 (0-99); FRAGMENT RBC FLAG 0 (0-99); HEMATOCRIT 39.6 % (40.0-51.0); HEMOGLOBIN 13.2 g/dL (13.7-17.5); LEFT SHIFT FLG 0 (0-99); LIPEMIA HEMOLYSIS FLAG 80 (0-99); MEAN CELL HEMOGLOBIN 33.8 pg (27.9-34.1); MEAN CELL HEMOGLOBIN CONCENTR. 33.3 g/dL (32.4-36.7); MEAN CELL VOLUME 101.3 fL (81.5-99.8); MEAN PLATELET VOLUME 10.6 fL (8.7-11.7); PLATELET CLUMPS FLAG 0 (0-99); PLATELET COUNT 193 10^3/uL (150-400); RED BLOOD CELL COUNT 3.91 10^6/uL (4.40-6.38); RED CELL DISTRIBUTION WIDTH 13.7 % (11.5-15.2)
[2016-10-14 05:30] LABS: ANION GAP 8 mEq/L (8-16); CALCIUM 8.4 mg/dL (8.5-10.4); CARBON DIOXIDE 28 mEq/l (22-31); CHLORIDE 105 mEq/L (97-110); CREATININE 1.3 mg/dL (0.7-1.3); GLOMERULAR FILTRATION RATE 54; GLUCOSE 139 mg/dL (70-100); POTASSIUM 4.9 mEq/L (3.5-5.2); SODIUM 141 mEq/L (134-144)
--- NOTE | 2016-10-14 18:03 | SOAPPROG ---
SOAP Progress Note Assessment/Plan: Assessment: Adenocarcinoma of prostate, stage 2 Acute POD # 1, cont care, distended abdomen related to surgery Plan: cont care, consider MACHO out in AM 10/14/16 18:00 Subjective: doing well, bowel distended and pain related to gas Objective: Vital Signs Temp Pulse Resp BP Pulse Ox 36.7 C 71 17 129/79 H 90 L 10/14/16 16:00 10/14/16 16:00 10/14/16 16:00 10/14/16 16:00 10/14/16 16:00 Laboratory Results 10/14/16 04:42 10/14/16 04:42 10/13/16 10/14/16 10/15/16 05:59 05:59 05:59 Intake Total 1250 Output Total 2515 Balance -1265 Physical Exam - Physical Exam General Appearance: WD/WN, alert Respiratory: No respiratory distress Cardiac/Chest: regular rate, rhythm Abdomen: soft (mild distended, port sites normal) Male Genitalia: normal genitalia (cath ok) Back: No CVA tenderness Skin: warm/dry Extremities: No calf tenderness, No Ngozi's sign (left leg tender related to Quadricep tear) Neuro/Psych: oriented x 3 ICD10 Worksheet Patient Problems: Problems Problem Status Diagnosed Adenocarcinoma of prostate, stage 2 Acute Quadriceps tendon rupture Acute Transient global amnesia Acute
[2016-10-15] MEDS: HYDROCODONE/APAP 5/325 TAB PO PRN ×4 (02:28→20:12)
[2016-10-15] MEDS: ONDANSETRON 4 MG/2 ML VIAL IVP PRN ×2 (02:29→08:49)
[2016-10-15 06:09] LABS: ANION GAP 7 mEq/L (8-16); CALCIUM 8.5 mg/dL (8.5-10.4); CARBON DIOXIDE 23 mEq/l (22-31); CHLORIDE 107 mEq/L (97-110); CREATININE 1.2 mg/dL (0.7-1.3); GLOMERULAR FILTRATION RATE 59; GLUCOSE 106 mg/dL (70-100); POTASSIUM 5.1 mEq/L (3.5-5.2); SODIUM 137 mEq/L (134-144)
[2016-10-15 06:11] LABS: % IMMATURE GRANULYOCYTES 0.4 % (0.0-1.1); ABSOLUTE IMMATURE GRANULOCYTES 0.03 10^3/uL (0.00-0.10); ADD DIFF? NO; ADD MORPH? NO; ADD SCAN? NO; ATYPICAL LYMPHOCYTE FLAG 0 (0-99); FRAGMENT RBC FLAG 0 (0-99); HEMATOCRIT 39.5 % (40.0-51.0); HEMOGLOBIN 12.8 g/dL (13.7-17.5); LEFT SHIFT FLG 0 (0-99); LIPEMIA HEMOLYSIS FLAG 80 (0-99); MEAN CELL HEMOGLOBIN 32.8 pg (27.9-34.1); MEAN CELL HEMOGLOBIN CONCENTR. 32.4 g/dL (32.4-36.7); MEAN CELL VOLUME 101.3 fL (81.5-99.8); MEAN PLATELET VOLUME 10.7 fL (8.7-11.7); PLATELET CLUMPS FLAG 10 (0-99); PLATELET COUNT 186 10^3/uL (150-400); RED CELL DISTRIBUTION WIDTH 13.9 % (11.5-15.2)
[2016-10-15] MEDS: D5W 1/2 NS W/ 20 KCl/L 1,000 ML IV SCH ×2 (06:59→20:41)
--- NOTE | 2016-10-15 10:34 | SOAPPROG ---
SOAP Progress Note Assessment/Plan: Assessment: Adenocarcinoma of prostate, stage 2 Acute POD # 2, cont care, distended abdomen related to surgery, reglan ordered, consider suppository and 3 way of abdomen. Pt to decide if he desires as discussed with him, and RN Plan: cont care, remove MACHO this AM, resume Lovenox this PM 10/15/16 13:03 Subjective: abdominal distention with out rebound and incisions and flank appearance normal Objective: Vital Signs Temp Pulse Resp BP Pulse Ox 36.9 C 79 18 106/98 H 94 10/15/16 08:00 10/15/16 08:00 10/15/16 08:00 10/15/16 08:00 10/15/16 08:00 Laboratory Results 10/15/16 04:57 10/15/16 04:57 10/14/16 10/15/16 10/16/16 05:59 05:59 05:59 Intake Total 1250 1845 Output Total 2515 350 Balance -1265 1495 Physical Exam - Physical Exam General Appearance: alert Respiratory: No respiratory distress Cardiac/Chest: regular rate, rhythm Abdomen: No rebound (gas distension noted, port sites normal) Rectal: normal exam (cath ok) Skin: normal color, warm/dry Extremities: No calf tenderness, No Ngozi's sign (left quad noted pain and left lower extremity edema similar to pre op) Neuro/Psych: oriented x 3 ICD10 Worksheet Patient Problems: Problems Problem Status Diagnosed Adenocarcinoma of prostate, stage 2 Acute Quadriceps tendon rupture Acute Transient global amnesia Acute
[2016-10-15] MEDS ORDERED: METOCLOPRAMIDE 10 MG/2 ML VIAL IVP ONE (11:30)
[2016-10-15] MEDS ORDERED: BISACODYL 10 MG SUPP PR PRN (12:57)
--- NOTE | 2016-10-15 17:41 | DX ---
Abdomen 3 View w CXR Post operative day 2 laparoscopic surgery and post op ileus, rule out obstruction. This can be done a fter 4PM if pt agrees to have this done. Call results to Dr. Gutierrez at [phone] (cell) Findings: There is moderate air-filled distention of small bowel and colonic loops to the level of th e splenic flexure, with small bowel air-fluid levels on the upright radiograph. Findings are compatib le with postsurgical ileus and/or distal colonic obstruction. No free air identified. Single view chest is unremarkable. Impression: Moderate distention of small bowel and colon compatible with postsurgical ileus and/or di stal colonic obstruction, without free air. Examination results called to Dr. Danny Gutierrez.
[2016-10-15] MEDS: METOCLOPRAMIDE 10 MG/2 ML VIAL IVP SCH ×2 (17:53→23:26)
[2016-10-15] MEDS: ENOXAPARIN 40 MG/0.4 ML SYR SC SCH (17:53)
[2016-10-15] MEDS ORDERED: ENOXAPARIN 40 MG/0.4 ML SYR SC SCH (18:00)
[2016-10-16] MEDS: HYDROCODONE/APAP 5/325 TAB PO PRN ×4 (01:21→20:30)
[2016-10-16] MEDS: METOCLOPRAMIDE 10 MG/2 ML VIAL IVP SCH ×4 (05:39→23:26)
[2016-10-16] MEDS: D5W 1/2 NS W/ 20 KCl/L 1,000 ML IV SCH ×2 (05:46→19:32)
[2016-10-16] MEDS ORDERED: MAGNESIUM HYDROXIDE 30 ML UDCUP PO PRN (06:20)
--- NOTE | 2016-10-16 09:03 | SOAPPROG ---
SOAP Progress Note Assessment/Plan: Assessment: Adenocarcinoma of prostate, stage 2 Acute POD # 3, cont care, distended abdomen improving, reglan to be continued, consider suppository and 3 way of abdomen reviewed. Plan: cont care, continue Lovenox, AM labs planned, consider GI consult to see if post op ileus can be addressed in any additional way 10/16/16 09:36 Subjective: some mild bowel fx, nausea less Objective: Vital Signs Temp Pulse Resp BP Pulse Ox 36.2 C 93 91 H 93/67 L 17 L 10/16/16 08:00 10/16/16 08:00 10/16/16 08:00 10/16/16 08:00 10/16/16 08:00 Laboratory Results 10/15/16 04:57 10/15/16 04:57 10/15/16 10/16/16 10/17/16 05:59 05:59 05:59 Intake Total 1845 1000 Output Total 350 1850 Balance 1495 -850 Physical Exam - Physical Exam General Appearance: alert Neck: supple Cardiac/Chest: regular rate, rhythm Abdomen: soft (port sites ok, softer than POD 2), No guarding, No rebound Male Genitalia: normal genitalia (cath ok) Back: No CVA tenderness Skin: warm/dry Extremities: No calf tenderness, No Ngozi's sign Neuro/Psych: alert, oriented x 3 ICD10 Worksheet Patient Problems: Problems Problem Status Diagnosed Adenocarcinoma of prostate, stage 2 Acute Quadriceps tendon rupture Acute Transient global amnesia Acute
--- NOTE | 2016-10-16 15:46 | GCON ---
[f rep st] CONSULTATION REFERRING PHYSICIAN: Danny Gutierrez MD CHIEF COMPLAINT: A 75-year-old male with ileus and abdominal distention and discomfort. HISTORY OF PRESENT ILLNESS: I have been asked to see this patient in consultation by Dr. Gutierrez. He is a very pleasant 75-year-old gentleman who underwent a radical prostatectomy, robotic-assisted. Th e patient has had abdominal distention postop with abdominal discomfort. He has had no bowel movemen ts. Hospital course was complicated by an injury with rupture of the left quadriceps tendon of the p atella. He has difficulty ambulating. He is required to have surgery at some time in the future. H gautam has had abdominal distention since his surgery. Abdominal x-ray appears to show an ileus. He has had previous colonoscopy, about 2 years ago, which was normal. It was recommended he have followup c olonoscopy in 10 years' time. I was asked to see patient for further evaluation for postop ileus. PAST MEDICAL HISTORY: Significant for prostate cancer as above, left quadriceps tendon rupture as ab ove, previous cholecystectomy and back surgery. MEDICATIONS: Medications prior to admission included ibuprofen, aspirin, Zofran, Ambien, metoprolol, enoxaparin, tramadol, Viagra, Valium and duloxetine. ALLERGIES: He has no known drug allergies. FAMILY HISTORY: Negative as it pertains to chief complaint. SOCIAL HISTORY: Is a nonsmoker and nondrinker. REVIEW OF SYSTEMS: Negative, other than mentioned in HPI. PHYSICAL EXAMINATION: VITAL SIGNS: Blood pressure 93/67, pulse of 93, 91% sat, respiratory rate 17, 36.2 Celsius temperature. GENERAL: Gentleman lying in bed, in some discomfort. HEENT: Normocepha lic, atraumatic. EOMI. Neck is supple. No cervical adenopathy. No thyromegaly. Mucous membranes moist. LUNGS: Clear. CARDIAC: Normal S1 and S2 without murmur. ABDOMEN: Distended. Absent meliton l sounds. EXTREMITIES: With no clubbing, cyanosis or edema. SKIN: Warm, dry and intact. Ecchymot ic lesion on the left thigh. NEUROLOGIC: Nonfocal. PSYCHIATRIC: Alert and oriented x3, with josue l affect. LABORATORY DATA: White count of 8.19, hemoglobin 12.8, hematocrit 39.5, MCV of 101.3, platelets of 1 86. Serum chemistries show serum sodium 137, potassium 5.1, chloride 107, CO2 of 23, BUN 13, creatin ine 1.2, blood sugar of 106. Abdominal x-ray with ileus, with dilated loops of small bowel and large bowel. IMPRESSION: A 75-year-old gentleman with: 1. Adynamic ileus postoperative from prostatectomy. 2. Also immobile from recent tendon rupture of the left lower extremity. 3. Patient is also on chronic narcotics for pain control. RECOMMENDATIONS: 1. Ambulate as much as possible. I would recommend PT working with patient. 2. Continue on IV Reglan 10 mg q.6 hours. 3. Would minimize narcotic use if possible. 4. Would recommend NG tube for decompression. Repeat abdominal x-ray in the morning. We will follow labs and maximize electrolytes, potassium and magnesium. We will follow with you. /[id number]/MODL
[2016-10-16] MEDS: ENOXAPARIN 40 MG/0.4 ML SYR SC SCH (17:46)
[2016-10-16] MEDS: DIAZEPAM 10 MG/2 ML SYR IVP PRN (20:30)
[2016-10-17] MEDS: METOCLOPRAMIDE 10 MG/2 ML VIAL IVP SCH ×3 (05:03→12:27)
[2016-10-17] MEDS: D5W 1/2 NS W/ 20 KCl/L 1,000 ML IV SCH (05:03)
[2016-10-17 06:20] LABS: ANION GAP 10 mEq/L (8-16); CALCIUM 8.8 mg/dL (8.5-10.4); CARBON DIOXIDE 25 mEq/l (22-31); CHLORIDE 102 mEq/L (97-110); CREATININE 1.4 mg/dL (0.7-1.3); GLOMERULAR FILTRATION RATE 49; GLUCOSE 122 mg/dL (70-100); MAGNESIUM 2.2 mg/dL (1.6-2.3); SODIUM 137 mEq/L (134-144)
[2016-10-17 07:51] LABS: HEMATOCRIT 40.8 % (40.0-51.0); HEMOGLOBIN 13.8 g/dL (13.7-17.5); MEAN CELL HEMOGLOBIN 34.1 pg (27.9-34.1); MEAN CELL HEMOGLOBIN CONCENTR. 33.8 g/dL (32.4-36.7); MEAN CELL VOLUME 100.7 fL (81.5-99.8); RED BLOOD CELL COUNT 4.05 10^6/uL (4.40-6.38); RED CELL DISTRIBUTION WIDTH 13.6 % (11.5-15.2)
[2016-10-17 08:19] LABS: ALANINE AMINOTRANSFERASE 69 IU/L (21-72); ALBUMIN 3.2 g/dL (3.5-5.0); ALKALINE PHOSPHATASE 103 IU/L (38-126); ANION GAP 9 mEq/L (8-16); ASPARTATE AMINOTRANSFERASE 31 IU/L (17-59); BILIRUBIN,TOTAL 1.8 mg/dL (0.1-1.4); CALCIUM 8.7 mg/dL (8.5-10.4); CARBON DIOXIDE 23 mEq/l (22-31); CHLORIDE 104 mEq/L (97-110); CREATININE 1.3 mg/dL (0.7-1.3); GLOMERULAR FILTRATION RATE 54; GLUCOSE 128 mg/dL (70-100); POTASSIUM 4.4 mEq/L (3.5-5.2); SODIUM 136 mEq/L (134-144); TOTAL PROTEIN 5.9 g/dL (6.3-8.2)
[2016-10-17] MEDS: DIAZEPAM 10 MG/2 ML SYR IVP PRN ×2 (09:28→20:24)
--- NOTE | 2016-10-17 12:28 | SOAPPROG ---
SOAP Progress Note Assessment/Plan: Assessment: Adenocarcinoma of prostate, stage 2 Acute POD # 4, cont care, distended abdomen improving, reglan to be continued, consider suppository and 3 way of abdomen reviewed. GI consult appreciated and Pt did not tolerate NG so DCed late last PM. Plan: cont care, continue Lovenox, AM labs reviewed 0 10/17/16 12:43 Subjective: improving, GI tract seems to be progressing Objective: Vital Signs Temp Pulse Resp BP Pulse Ox 36.8 C 89 14 109/75 92 10/17/16 12:00 10/17/16 12:00 10/17/16 12:00 10/17/16 12:00 10/17/16 12:00 Laboratory Results 10/17/16 07:30 10/17/16 07:30 10/16/16 10/17/16 10/18/16 05:59 05:59 05:59 Intake Total 1000 1078 Output Total 1850 1550 Balance -850 -472 Physical Exam - Physical Exam General Appearance: alert Neck: supple Respiratory: No respiratory distress Cardiac/Chest: regular rate, rhythm Abdomen: soft (some distention) Back: No CVA tenderness Extremities: No calf tenderness, No Ngozi's sign Neuro/Psych: oriented x 3 ICD10 Worksheet Patient Problems: Problems Problem Status Diagnosed Adenocarcinoma of prostate, stage 2 Acute Quadriceps tendon rupture Acute Transient global amnesia Acute
[2016-10-17] MEDS ORDERED: ZOLPIDEM TARTRATE 5 MG TAB PO PRN (12:40)
--- NOTE | 2016-10-17 13:32 | SOAPPROG ---
SOAP Progress Note Assessment/Plan: Assessment: 1. Diffuse abdominal distention 2. Diarrhea 3. Post-operative small bowel and colonic ileus Plan: 1. Clears today 2. Check C.difficile PCR 3. 2 way of abdomen today 4. Ok to leave NG out for now as did not tolerate. 5. Will decrease Reglan dose to 5mg po Q8 hrs frequent BMs. Reassess in AM and january d/c then. If worsening diarrhea then I would stop later today. 10/17/16 13:29 Subjective: CC: Abdominal pain-generalized Improved today in regards to less distention and less generalized pain. Some nausea. No emesis. Up to shower today. Has reported both flatus and diarrhea, non-bloody every hour. Objective: Vital Signs Temp Pulse Resp BP Pulse Ox 36.8 C 89 14 109/75 92 10/17/16 12:00 10/17/16 12:00 10/17/16 12:00 10/17/16 12:00 10/17/16 12:00 Laboratory Results 10/17/16 07:30 10/17/16 07:30 10/16/16 10/17/16 10/18/16 05:59 05:59 05:59 Intake Total 1000 1078 Output Total 1850 1550 Balance -850 -538 Physical Exam - Physical Exam General Appearance: no apparent distress EENT: normal ENT inspection Neck: supple Respiratory: lungs clear Cardiac/Chest: regular rate, rhythm, No tachycardia Abdomen: distended, other (Intermittent bowel sounds with some rushes. No high pitches sounds. Abdomen is tympanic and distended but compressible. Laproscopic wounds look good.), No guarding, No rebound Skin: warm/dry ICD10 Worksheet Patient Problems: Problems Problem Status Diagnosed Adenocarcinoma of prostate, stage 2 Acute Quadriceps tendon rupture Acute Transient global amnesia Acute
--- NOTE | 2016-10-17 17:00 | DX ---
Abdomen 2 views History: Ileus. Bowel distention. Findings: Surgical clips in the gallbladder fossa. Multiple dilated loops of small bowel with air-flu id levels. Some air noted in the colon but predominantly small bowel distention with air-fluid levels suggesting distal small bowel obstruction. Impression: 1. Suspect distal small bowel obstruction. 2. Consider CT imaging.
[2016-10-17] MEDS: ENOXAPARIN 40 MG/0.4 ML SYR SC SCH (18:05)
[2016-10-17] MEDS: VANCOMYCIN 125 MG/2.5 ML UDL PO SCH ×2 (19:51→19:55)
[2016-10-17] MEDS ORDERED: METOCLOPRAMIDE 10 MG/2 ML VIAL IVP SCH (22:00)
[2016-10-18] MEDS: ZOLPIDEM TARTRATE 5 MG TAB PO PRN (01:07)
[2016-10-18] MEDS: VANCOMYCIN 125 MG/2.5 ML UDL PO SCH ×4 (08:58→22:22)
[2016-10-18] MEDS: DIAZEPAM 10 MG/2 ML SYR IVP PRN (14:05)
--- NOTE | 2016-10-18 14:54 | SOAPPROG ---
SOAP Progress Note Assessment/Plan: Assessment: 1. Diffuse abdominal distention 2. Diarrhea- C.diff colitis 3. Post-operative small bowel and colonic ileus 4. Insomnia Plan: 1. Continue clears for now. He may move to full liquids but I would be careful with advancing his diet too much 2. Will add IV flagyl 500mg IV TID as oral vancomycin may not be reaching his colon given the SB ileus 3. AM xray, CBC, Chemistries 4. C.diff precautions 5. Will give restoril to help with sleep tonight. 10/18/16 14:51 Subjective: CC: Abdominal pain and diarrhea. Diarrhea continues. 1 BM every hour or two. No abdominal pain today however. Has trouble with sleep. No nausea or emesis. Objective: Vital Signs Temp Pulse Resp BP Pulse Ox 36.9 C 68 18 120/70 97 10/18/16 08:00 10/18/16 08:00 10/18/16 08:00 10/18/16 08:00 10/18/16 08:00 Laboratory Results 10/17/16 07:30 10/17/16 07:30 10/17/16 10/18/16 10/19/16 05:59 05:59 05:59 Intake Total 1078 Output Total 1550 600 Balance -472 -600 Physical Exam - Physical Exam General Appearance: WD/WN, no apparent distress EENT: normal ENT inspection Neck: supple Respiratory: lungs clear Cardiac/Chest: regular rate, rhythm Abdomen: non-tender, distended, other (Bowel sounds presents. Surgical wounds intact with serous drainage that is minor), No guarding, No rebound, No hernia, No mass, No ascites ICD10 Worksheet Patient Problems: Problems Problem Status Onset C. difficile diarrhea Acute Adenocarcinoma of prostate, stage 2 Acute Quadriceps tendon rupture Acute Transient global amnesia Acute
[2016-10-18] MEDS ORDERED: NS 1,000 ML IV SCH (15:15)
--- NOTE | 2016-10-18 15:16 | SOAPPROG ---
SOAP Progress Note Assessment/Plan: Assessment: Adenocarcinoma of prostate, stage 2 Acute POD # 5, cont care, distended abdomen improving, C. Diff noted. GI consult appreciated. Plan: cont care, continue Lovenox, AM labs ordered, may need K+ added to IV fluids if low in AM 10/18/16 15:13 Subjective: feeling better , diarrhea persists and GI addressing the C. Diff rx Objective: Vital Signs Temp Pulse Resp BP Pulse Ox 36.9 C 68 18 120/70 97 10/18/16 08:00 10/18/16 08:00 10/18/16 08:00 10/18/16 08:00 10/18/16 08:00 Laboratory Results 10/17/16 07:30 10/17/16 07:30 10/17/16 10/18/16 10/19/16 05:59 05:59 05:59 Intake Total 1078 Output Total 1550 600 Balance -472 -600 Physical Exam - Physical Exam General Appearance: alert Neck: supple Respiratory: No respiratory distress Cardiac/Chest: regular rate, rhythm Abdomen: No guarding, No rebound (distention improving) Skin: warm/dry (seems a bit dehydrated) Extremities: No calf tenderness, No Ngozi's sign Neuro/Psych: oriented x 3 ICD10 Worksheet Patient Problems: Problems Problem Status Onset C. difficile diarrhea Acute Adenocarcinoma of prostate, stage 2 Acute Quadriceps tendon rupture Acute Transient global amnesia Acute
[2016-10-18] MEDS: NS 1,000 ML IV SCH (16:53)
[2016-10-18] MEDS: ENOXAPARIN 40 MG/0.4 ML SYR SC SCH (17:53)
[2016-10-18] MEDS: TEMAZEPAM 15 MG CAP PO PRN (22:22)
[2016-10-19 05:48] LABS: ADD DIFF? YES; ADD MORPH? NO; ADD SCAN? NO; ATYPICAL LYMPHOCYTE FLAG 20 (0-99); FRAGMENT RBC FLAG 0 (0-99); HEMATOCRIT 36.9 % (40.0-51.0); HEMOGLOBIN 12.4 g/dL (13.7-17.5); LEFT SHIFT FLG 20 (0-99); LIPEMIA HEMOLYSIS FLAG 80 (0-99); MEAN CELL HEMOGLOBIN 32.9 pg (27.9-34.1); MEAN CELL HEMOGLOBIN CONCENTR. 33.6 g/dL (32.4-36.7); MEAN CELL VOLUME 97.9 fL (81.5-99.8); MEAN PLATELET VOLUME 9.9 fL (8.7-11.7); PLATELET CLUMPS FLAG 10 (0-99); PLATELET COUNT 285 10^3/uL (150-400); RED BLOOD CELL COUNT 3.77 10^6/uL (4.40-6.38); RED CELL DISTRIBUTION WIDTH 13.5 % (11.5-15.2)
[2016-10-19 05:59] LABS: ALANINE AMINOTRANSFERASE 55 IU/L (21-72); ALBUMIN 2.9 g/dL (3.5-5.0); ALKALINE PHOSPHATASE 72 IU/L (38-126); ANION GAP 7 mEq/L (8-16); ASPARTATE AMINOTRANSFERASE 30 IU/L (17-59); BILIRUBIN,TOTAL 1.1 mg/dL (0.1-1.4); CALCIUM 8.5 mg/dL (8.5-10.4); CARBON DIOXIDE 20 mEq/l (22-31); CHLORIDE 111 mEq/L (97-110); CREATININE 1.3 mg/dL (0.7-1.3); GLOMERULAR FILTRATION RATE 54; GLUCOSE 88 mg/dL (70-100); MAGNESIUM 2.1 mg/dL (1.6-2.3); POTASSIUM 3.9 mEq/L (3.5-5.2); SODIUM 138 mEq/L (134-144); TOTAL PROTEIN 5.4 g/dL (6.3-8.2)
[2016-10-19] MEDS: VANCOMYCIN 125 MG/2.5 ML UDL PO SCH ×4 (06:00→21:42)
[2016-10-19 06:19] LABS: PLATELET ESTIMATE ADEQUATE (ADEQ); POLYCHROMASIA 1+
[2016-10-19] MEDS: NS 1,000 ML IV SCH (07:04)
--- NOTE | 2016-10-19 07:35 | SOAPPROG ---
SOAP Progress Note Assessment/Plan: Assessment: Adenocarcinoma of prostate, stage 2 Acute POD # 6 RRP and PLND, cont care, distended abdomen improving, C. Diff noted. GI consult appreciated. Labs ok, need continue hydration and C.Diff rx. Nodes negative on final path, prostate final pending Plan: cont care, continue Lovenox, AM labs reviewed 10/19/16 07:33 Subjective: abdomen gradually improving Objective: Vital Signs Temp Pulse Resp BP Pulse Ox 36.7 C 92 18 136/81 H 94 10/18/16 19:35 10/18/16 19:35 10/18/16 19:35 10/18/16 19:35 10/18/16 19:35 Laboratory Results 10/19/16 05:08 10/19/16 05:08 10/18/16 10/19/16 10/20/16 05:59 05:59 05:59 Intake Total 350 Output Total 600 500 Balance -600 -150 Physical Exam - Physical Exam General Appearance: alert Respiratory: No respiratory distress Cardiac/Chest: regular rate, rhythm Abdomen: soft (less distended) Rectal: normal exam (cath ok) Back: No CVA tenderness Extremities: non-tender, No calf tenderness, No Ngozi's sign Neuro/Psych: alert, oriented x 3 ICD10 Worksheet Patient Problems: Problems Problem Status Onset C. difficile diarrhea Acute Adenocarcinoma of prostate, stage 2 Acute Quadriceps tendon rupture Acute Transient global amnesia Acute
[2016-10-19] MEDS: [UNRECOGNIZED DRUG - OTHER] IV SCH ×2 (09:38→19:16)
[2016-10-19] MEDS: POTASSIUM CHLORIDE IV SCH ×2 (09:38→19:16)
[2016-10-19] MEDS: DEXTROSE IV SCH ×2 (09:38→19:16)
[2016-10-19] MEDS: LACTATED RINGERS IV SCH ×2 (09:38→19:16)
[2016-10-19] MEDS ORDERED: NS 1,000 ML IV ONE (14:29)
--- NOTE | 2016-10-19 15:21 | SOAPPROG ---
SOAP Progress Note Assessment/Plan: Assessment: 1. Diffuse abdominal distention 2. Diarrhea- C.diff colitis 3. Post-operative small bowel and colonic ileus 4. Insomnia 5. Oliguria 6. Left leg edema Plan: 1. Continue clears for now. He may move to full liquids but I would be careful with advancing his diet too much 2. Continue IV flagyl and oral vancomycin 3. Ok to repeat restoril this evening 4. Am abdominal xray 5. Place compression stocking and elevate left leg 6. Fluid bolus for lower UOP. Continue IVF 7. AM lytes 10/19/16 15:18 Subjective: CC: Diarrhea Improvement in frequency and volume today. Still urgency. Ongoing abdominal distention but better. No N/V. No abdominal pain. Objective: Vital Signs Temp Pulse Resp BP Pulse Ox 36.9 C 71 16 110/64 94 10/19/16 08:15 10/19/16 08:15 10/19/16 08:15 10/19/16 08:15 10/19/16 08:15 Laboratory Results 10/19/16 05:08 10/19/16 05:08 10/18/16 10/19/16 10/20/16 05:59 05:59 05:59 Intake Total 350 Output Total 600 500 75 Balance -600 -150 -75 Physical Exam - Physical Exam General Appearance: WD/WN, no apparent distress EENT: normal ENT inspection Neck: supple Respiratory: lungs clear Cardiac/Chest: regular rate, rhythm Abdomen: non-tender, distended, other (Very hypoactive bowel sounds. Abdomen is tympanic. Softer than yesterday), No guarding, No rebound, No ascites Back: Normal inspection Skin: normal color, warm/dry, No cyanosis, No diaphoresis, No jaundice Lymphatic: no adenopathy Extremities: pedal edema, swelling, No calf tenderness, No Ngozi's sign Neuro/Psych: normal mood/affect, oriented x 3 ICD10 Worksheet Patient Problems: Problems Problem Status Onset C. difficile diarrhea Acute Adenocarcinoma of prostate, stage 2 Acute Quadriceps tendon rupture Acute Transient global amnesia Acute
[2016-10-19] MEDS: ENOXAPARIN 40 MG/0.4 ML SYR SC SCH (18:19)
[2016-10-19] MEDS: TEMAZEPAM 15 MG CAP PO PRN (21:42)
[2016-10-19 22:32] VITALS: RESP 16
[2016-10-20] MEDS: POTASSIUM CHLORIDE IV SCH ×2 (04:36→15:53)
[2016-10-20] MEDS: NS 1,000 ML IV SCH (04:36)
[2016-10-20] MEDS: [UNRECOGNIZED DRUG - OTHER] IV SCH ×2 (04:36→15:53)
[2016-10-20] MEDS: LACTATED RINGERS IV SCH ×2 (04:36→15:53)
[2016-10-20] MEDS: DEXTROSE IV SCH ×2 (04:36→15:53)
[2016-10-20] MEDS: VANCOMYCIN 125 MG/2.5 ML UDL PO SCH ×4 (05:14→21:32)
--- NOTE | 2016-10-20 11:17 | SOAPPROG ---
SOAP Progress Note Assessment/Plan: Assessment: 1. Diffuse abdominal distention 2. Diarrhea- C.diff colitis 3. Post-operative small bowel and colonic ileus 4. Insomnia 5. Left leg edema Plan: 1. ADAT 2. I will review abdominal film later today when performed 3. Labs ordered but not reported. Will make sure Chem panel and Mg done 4. Continue IV flagyl and po vancomycin for now. 5. If tolerates po and ileus continues to resolve will then change Abx to po and complete 14 days 6. Hopefully he is close to discharge. 10/20/16 11:14 Subjective: CC: Diarrhea Ileus Improved some from yesterday. Less diarrhea frequency and urgency but stool still watery. No N/V Objective: Vital Signs Temp Pulse Resp BP Pulse Ox 36.4 C 65 16 127/75 H 93 10/20/16 08:00 10/20/16 08:00 10/20/16 08:00 10/20/16 08:00 10/20/16 08:00 Laboratory Results 10/19/16 05:08 10/19/16 05:08 10/19/16 10/20/16 10/21/16 05:59 05:59 05:59 Intake Total 350 3289 Output Total 500 625 Balance -150 2664 Physical Exam - Physical Exam General Appearance: WD/WN, no apparent distress EENT: normal ENT inspection Neck: supple Respiratory: lungs clear Cardiac/Chest: regular rate, rhythm, No tachycardia, No systolic murmur Abdomen: normal bowel sounds, distended Skin: warm/dry Extremities: pedal edema, swelling ICD10 Worksheet Patient Problems: Problems Problem Status Onset C. difficile diarrhea Acute Adenocarcinoma of prostate, stage 2 Acute Quadriceps tendon rupture Acute Transient global amnesia Acute
[2016-10-20 12:15] LABS: ANION GAP 8 mEq/L (8-16); CALCIUM 8.7 mg/dL (8.5-10.4); CARBON DIOXIDE 20 mEq/l (22-31); CHLORIDE 111 mEq/L (97-110); CREATININE 1.2 mg/dL (0.7-1.3); GLOMERULAR FILTRATION RATE 59; GLUCOSE 109 mg/dL (70-100); POTASSIUM 4.4 mEq/L (3.5-5.2); SODIUM 139 mEq/L (134-144)
--- NOTE | 2016-10-20 14:32 | SOAPPROG ---
SOAP Progress Note Assessment/Plan: Assessment: Adenocarcinoma of prostate, stage 2 Acute POD # 7 RRP and PLND, cont care, distended abdomen improving, C. Diff noted. GI consult appreciated. Labs ok, need continue hydration and C.Diff rx. Nodes negative on final path, prostate final pending Plan: cont care, continue Lovenox, AM labs reviewed, DC as GI suggests 10/20/16 14:31 Subjective: better Objective: Vital Signs Temp Pulse Resp BP Pulse Ox 36.4 C 65 16 127/75 H 93 10/20/16 08:00 10/20/16 08:00 10/20/16 08:00 10/20/16 08:00 10/20/16 08:00 Laboratory Results 10/19/16 05:08 10/20/16 11:40 10/19/16 10/20/16 10/21/16 05:59 05:59 05:59 Intake Total 350 3289 300 Output Total 500 625 Balance -150 2664 300 Physical Exam - Physical Exam General Appearance: alert Neck: normal inspection Respiratory: No respiratory distress Cardiac/Chest: regular rate, rhythm Abdomen: soft Back: No CVA tenderness Neuro/Psych: oriented x 3 ICD10 Worksheet Patient Problems: Problems Problem Status Onset C. difficile diarrhea Acute Adenocarcinoma of prostate, stage 2 Acute Quadriceps tendon rupture Acute Transient global amnesia Acute
[2016-10-20] MEDS: ENOXAPARIN 40 MG/0.4 ML SYR SC SCH (18:16)
[2016-10-20] MEDS: ZOLPIDEM TARTRATE 5 MG TAB PO PRN (21:32)
[2016-10-21] MEDS: VANCOMYCIN 125 MG/2.5 ML UDL PO SCH ×4 (05:30→20:18)
[2016-10-21 05:46] LABS: HEMATOCRIT 34.7 % (40.0-51.0); HEMOGLOBIN 11.6 g/dL (13.7-17.5); MEAN CELL HEMOGLOBIN 32.9 pg (27.9-34.1); MEAN CELL HEMOGLOBIN CONCENTR. 33.4 g/dL (32.4-36.7); MEAN CELL VOLUME 98.3 fL (81.5-99.8); RED BLOOD CELL COUNT 3.53 10^6/uL (4.40-6.38); RED CELL DISTRIBUTION WIDTH 13.4 % (11.5-15.2)
[2016-10-21 06:56] LABS: ANION GAP 8 mEq/L (8-16); CALCIUM 8.3 mg/dL (8.5-10.4); CARBON DIOXIDE 19 mEq/l (22-31); CHLORIDE 112 mEq/L (97-110); CREATININE 1.1 mg/dL (0.7-1.3); GLOMERULAR FILTRATION RATE > 60; GLUCOSE 95 mg/dL (70-100); POTASSIUM 4.2 mEq/L (3.5-5.2); SODIUM 139 mEq/L (134-144)
[2016-10-21] MEDS: POTASSIUM CHLORIDE IV SCH ×3 (09:59→18:06)
[2016-10-21] MEDS: [UNRECOGNIZED DRUG - OTHER] IV SCH ×3 (09:59→18:06)
[2016-10-21] MEDS: LACTATED RINGERS IV SCH ×3 (09:59→18:06)
[2016-10-21] MEDS: DEXTROSE IV SCH ×3 (09:59→18:06)
[2016-10-21] MEDS ORDERED: DIAZEPAM 5 MG TAB PO PRN ×2 (15:51→16:16)
--- NOTE | 2016-10-21 15:54 | SOAPPROG ---
SOAP Progress Note Assessment/Plan: Assessment: 1. Diffuse abdominal distention 2. Diarrhea 3. C.diff colitis 4. Post-operative small bowel ileus 5. Anxiety Plan: 1. Resume valium 5mg po BID PRN anxiety 2. Vancomycin for 14 days total 3. Continue flagyl IV for now but will stop at d/c and use vancomycin monotherapy 4. Ok for d/c tomorrow with GI f/u next week (our office will contact him to schedule) 5. Please call with any questions. 10/21/16 16:10 Subjective: CC: Diarrhea Improved. Still distended but eating more. No abdominal pain. No N/V Objective: Vital Signs Temp Pulse Resp BP Pulse Ox 36.8 C 73 16 120/78 95 10/21/16 15:30 10/21/16 15:30 10/21/16 15:30 10/21/16 15:30 10/21/16 15:30 Laboratory Results 10/21/16 04:55 10/21/16 04:55 10/20/16 10/21/16 10/22/16 05:59 05:59 05:59 Intake Total 4539 7040 Output Total 625 1300 550 Balance 3914 5740 -550 Physical Exam - Physical Exam General Appearance: WD/WN, no apparent distress EENT: pharynx normal Respiratory: lungs clear Cardiac/Chest: regular rate, rhythm Abdomen: normal bowel sounds, non-tender, distended, other (Surgical wounds without drainage. ), No guarding, No rebound, No ascites Skin: warm/dry ICD10 Worksheet Patient Problems: Problems Problem Status Onset C. difficile diarrhea Acute Adenocarcinoma of prostate, stage 2 Acute Quadriceps tendon rupture Acute Transient global amnesia Acute
--- NOTE | 2016-10-21 16:19 | SOAPPROG ---
SOAP Progress Note Assessment/Plan: Assessment: Adenocarcinoma of prostate, stage 2 Acute POD # 8 RRP and PLND, cont care Colitis (C. Diff) distended abdomen improving, C. Diff noted. GI consult appreciated. Labs ok, need continue hydration and C.Diff rx. Nodes negative on final path, prostate final pending Plan: cont care, continue Lovenox, AM labs reviewed, DC as GI suggests 10/21/16 16:17 Subjective: better, tolerating diet, bowel fx improving Objective: Vital Signs Temp Pulse Resp BP Pulse Ox 36.8 C 73 16 120/78 95 10/21/16 15:30 10/21/16 15:30 10/21/16 15:30 10/21/16 15:30 10/21/16 15:30 Laboratory Results 10/21/16 04:55 10/21/16 04:55 10/20/16 10/21/16 10/22/16 05:59 05:59 05:59 Intake Total 4539 7040 Output Total 625 1300 550 Balance 3914 5740 -550 Physical Exam - Physical Exam General Appearance: alert Respiratory: No respiratory distress Cardiac/Chest: regular rate, rhythm Abdomen: soft, No guarding, No rebound Male Genitalia: normal genitalia (cath ok) Back: No CVA tenderness Skin: warm/dry Extremities: No calf tenderness, No Ngozi's sign Neuro/Psych: alert, oriented x 3 ICD10 Worksheet Patient Problems: Problems Problem Status Onset C. difficile diarrhea Acute Adenocarcinoma of prostate, stage 2 Acute Quadriceps tendon rupture Acute Transient global amnesia Acute
[2016-10-21] MEDS: ENOXAPARIN 40 MG/0.4 ML SYR SC SCH (17:57)
[2016-10-21] MEDS: ZOLPIDEM TARTRATE 5 MG TAB PO PRN (21:38)
[2016-10-21 23:15] VITALS: TEMP 98.8
[2016-10-22] MEDS: VANCOMYCIN 125 MG/2.5 ML UDL PO SCH (05:52)
[2016-10-22 08:25] VITALS: BP 118/74; PULSE 82; O2SAT 95
--- NOTE | 2016-10-22 09:48 | SOAPPROG ---
SOAP Progress Note Assessment/Plan: Assessment: Adenocarcinoma of prostate, stage 2 Acute POD # 9 RRP and PLND, cont care Colitis (C. Diff) distended abdomen improving, C. Diff noted. GI consult appreciated. Labs ok, need continue hydration and C.Diff rx. Nodes negative on final path, prostate final pending Plan: DC home continue Lovenox, AM labs reviewed, DC as GI suggests 10/22/16 10:31 Subjective: ready for DC Objective: Vital Signs Temp Pulse Resp BP Pulse Ox 37.1 C 82 16 118/74 95 10/22/16 08:00 10/22/16 08:00 10/22/16 08:00 10/22/16 08:00 10/22/16 08:00 Laboratory Results 10/21/16 04:55 10/21/16 04:55 10/21/16 10/22/16 10/23/16 05:59 05:59 05:59 Intake Total 7040 1675 Output Total 1300 2400 Balance 5740 -725 Physical Exam - Physical Exam General Appearance: WD/WN, alert Neck: normal inspection Respiratory: No respiratory distress Cardiac/Chest: regular rate, rhythm Abdomen: soft, No guarding, No rebound Male Genitalia: normal genitalia Back: No CVA tenderness Skin: warm/dry Extremities: No calf tenderness, No Ngozi's sign Neuro/Psych: alert, oriented x 3 ICD10 Worksheet Patient Problems: Problems Problem Status Onset C. difficile diarrhea Acute Adenocarcinoma of prostate, stage 2 Acute Quadriceps tendon rupture Acute Transient global amnesia Acute
--- NOTE | 2016-10-22 11:18 | GDS ---
[f rep st] DISCHARGE SUMMARY ADMISSION DIAGNOSIS: Prostate cancer. DISCHARGE DIAGNOSIS: Prostate cancer with postoperative Clostridium difficile colitis. Gentleman underwent general anesthesia and had the radical prostatectomy done. Pathology revealed n o cancer in the nodes. Postoperatively, he had delay of bowel function and assessment by GI. X-ray s and laboratory tests confirmed that he had a Clostridium difficile colitis that, with vancomycin, IV Flagyl, and hydration has, for the most part, resolved. He is being discharged home with a soft abdomen, tolerating his diet well. Final path on the lymph nodes was normal. Final path on the pro state is pending. He will have followup with me on to get his Olivera catheter removed. He is being discharged home on Lovenox and vancomycin. I have tried to answer to his questions to the best of my ability, and he appears well informed, as does his and daughter. He will be dischar ge home and have followup with me as outlined. /[id number]/MODL
--- NOTE | 2016-10-22 11:39 | PDIAF ---
- Diagnosis Diagnosis: prostate cancer, c diff colitis Code Status: Full Code - Medication Management Discharge Medications: Medications to Continue on Transfer Aspirin [Aspirin 325 mg (*)] 325 mg PO DAILY 04/02/15 [Last Taken 10/03/16] Herbals/Supplements -Info Only 1 ea PO DAILY 04/02/15 [Last Taken 10/10/16] Ibuprofen [Advil] 400 mg PO DAILY PRN 04/02/15 [Last Taken Unknown] Metoprolol Tartrate [Lopressor 25 mg (*)] 25 mg PO BID 10/07/16 [Last Taken 02/18] Ondansetron Odt [Zofran Odt 4 mg (*)] 4 mg PO Q4PRN PRN #20 tab 10/07/16 [Last Taken 10/13/16] Zolpidem Tartrate [Ambien 5MG (*)] 10 mg PO HS 10/07/16 [Last Taken Unknown] Enoxaparin [Lovenox 100 MG (*)] 100 mg SC BID #6 syr 10/09/16 [Last Taken ] traMADol [Ultram 50 mg (*)] 50 mg PO Q6HRS PRN #14 tab 10/09/16 [Last Taken Unknown] DULoxetine [Cymbalta] 40 mg PO DAILY 10/13/16 [Last Taken 10/10/16] Diazepam [Valium 5 MG (*)] 5 mg PO DAILY PRN 10/13/16 [Last Taken Unknown] Sildenafil Citrate [Viagra 50 MG (*)] 25 mg PO PRN PRN 10/13/16 [Last Taken ] Acetaminophen [Tylenol 325mg (*)] 650 mg PO Q4HRS PRN #0 tab 10/22/16 [Last Taken Unknown] Diazepam [Valium 5 MG (*)] 5 mg PO Q6HRS PRN #0 tab 10/22/16 [Last Taken Unknown ] Enoxaparin [Lovenox 40 MG (*)] 40 mg SC DAILY@18 #20 syr 10/22/16 [Last Taken Unknown] Vancomycin [Vancocin Oral Liquid] 125 mg PO QID #60 udl 10/22/16 [Last Taken Unknown] Discharge Medications: Refer to the Discharge Home Medication list for PRN reason. - Orders Services needed: Home Care, Registered Nurse, Physical Therapy, Occupational Therapy Home Care Face to Face: I certify that this patient was under my care and that I had the required [id number] encounter meeting the encounter requirements on the discharge day. My findings support the fact that the patient is homebound as defined in CMS Chapter 7 Medicare Benefits Manual 30.1.1, The condition of the patient is such that there exists a normal inability to leave home and consequently, leaving home would require a considerable and taxing effort. Diet Recommendation: no restrictions on diet - Follow Up Care Current Providers and Referrals: Danny Gutierrez MD [Medical Doctor] - 3-5 days Daniel Turner MD [Medical Doctor] - follow up in 1 week Peng Jasso MD [Primary Care Provider] -
[2016-10-22] MEDS ORDERED: VANCOMYCIN 125 MG/2.5 ML UDL PO SCH (12:00)
== END 2016-10-22 11:38 | disposition home or self-care (01) | DRG 707 ==
LOC: FSGY 07:46 → F1N 13:33 → F3E 15:17
PROVIDERS: ADMIT Specialist; ATTEND Specialist
PROC: 0VT04ZZ Resection of Prostate, Percutaneous Endoscopic Approach (ICD-10-PCS; principal; 2016-10-13 08:30)
PROC: 07BC4ZX Excision of Pelvis Lymphatic, Percutaneous Endoscopic Approach, Diagnostic (ICD-10-PCS; principal; 2016-10-13 08:30)
PROC: 8E0W4CZ Robotic Assisted Procedure of Trunk Region, Percutaneous Endoscopic Approach (ICD-10-PCS; principal; 2016-10-13 08:30)
DX: C61 Malignant neoplasm of prostate (principal); A04.7 Enterocolitis due to Clostridium difficile; K56.7 Ileus, unspecified
CPT/HCPCS: 97116-GP; 97162-GP; 97530-GP; G8978-GP-CJ; G8979-GP-CI; G8980-GP-CI; J0690; J1100; J1170; J1650; J2405; J2704; J2765; J3010

== ENCOUNTER → 2017-12-22 | Outpatient (CLI) | payer OTHER, MEDICARE | LOC: BHFA 10:45 | PROVIDERS: ATTEND Internal Medicine Interventional Cardiology | DX: R00.2 Palpitations (principal); I49.3 Ventricular premature depolarization; I48.91 Unspecified atrial fibrillation ==

== ENCOUNTER → 2017-12-25 | Outpatient (CLI) | payer OTHER, MEDICARE | LOC: BHFA 09:00 | PROVIDERS: ATTEND Internal Medicine Cardiovascular Disease | DX: I49.3 Ventricular premature depolarization (principal) | CPT/HCPCS: 78452; 93017; A9500; J2785 ==

== ENCOUNTER 2018-04-19 08:56 | Inpatient (IN) | payer OTHER, MEDICARE ==
--- NOTE | 2018-04-19 09:15 | EDPHY ---
H & P Stated Complaint: 2 x hernia repair - 04/17/18, has distention and increased abdo pain. Time Seen by Provider: 04/19/18 09:15 HPI/ROS: CHIEF COMPLAINT: Abdominal distension HISTORY OF PRESENT ILLNESS: The patient is postop day 1 status post hernia repair performed at the outpatient surgery center. He presents to the ED today with complaints of abdominal distension and moderate pain. The patient had nausea earlier today but that symptom has resolved. The patient denies significant flatus or bowel movement since surgery. The patient does have a history of a ileus following his prostatectomy over a year ago. The patient denies any fever. REVIEW OF SYSTEMS: A comprehensive 10 point review of systems is otherwise negative aside from elements mentioned in the history of present illness. Source: Patient Exam Limitations: No limitations - Personal History Current Tetanus Diphtheria and Acellular Pertussis (TDAP): Yes - Medical/Surgical History Hx Asthma: No Hx Chronic Respiratory Disease: No Hx Diabetes: No Hx Cardiac Disease: No Hx Renal Disease: No Hx Cirrhosis: No Hx Alcoholism: No Hx HIV/AIDS: No Hx Splenectomy or Spleen Trauma: No Other PMH: leonela, 2 rotator cuff surgeries, tumor vocal cord removed w/ radiation, PVC arrythmia, prostate CA, remote a-fib, episode transient amnesia. Hernia repair - 04/17/18. - Social History Smoking Status: Never smoked - Physical Exam Exam: General Appearance: Alert, mild discomfort Eyes: Pupils equal and round no pallor or injection ENT, Mouth: Mucous membranes moist Respiratory: There are no retractions, lungs are clear to auscultation Cardiovascular: Regular rate and rhythm Gastrointestinal: Distended, occasional high-pitched bowel sounds, tympanitic Neurological: 5/5 strength all 4 extremities Skin: Warm and dry, no rashes Musculoskeletal: Neck is supple nontender Extremities: symmetrical, full range of motion Constitutional: Initial Vital Signs Temperature (C) 36.4 C 04/19/18 08:57 Heart Rate 63 04/19/18 08:57 Respiratory Rate 16 04/19/18 08:57 Blood Pressure 130/86 H 04/19/18 08:57 O2 Sat (%) 88 L 04/19/18 08:57 O2 Delivery Mode Room Air Allergies/Adverse Reactions: No Known Allergies Allergy (Verified 04/16/18 12:12) Home Medications: Medication Instructions Recorded Metoprolol Tartrate [Lopressor 25 10/07/16 mg (*)] DULoxetine [Cymbalta] 10/13/16 Medical Decision Making ED Course/Re-evaluation: The patient presents the ED with abdominal pain and distension following hernia surgery yesterday. The patient does have a prior history of ileus following prostate surgery over a year ago. The patient arrived and was noted to be quite distended and was having fairly significant pain. He was afebrile. He has a normal white blood cell count. Creatinine was slightly elevated at 1.6. The patient was taken for a CT scan of the abdomen pelvis which demonstrates a likely ileus versus small-bowel obstruction. I did speak with Dr. Connor from General surgery. The patient will be admitted to the hospital for supportive care at this point time. The patient has declined an NG tube in the emergency department. Differential Diagnosis: Differential diagnosis considered includes ileus, obstruction, perforation, rectus hematoma - Data Points Laboratory Results: Laboratory Results 04/19/18 09:28 04/19/18 09:28 04/19/18 04/19/18 04/19/18 09:35 09:28 09:28 WBC 8.35 10^3/uL 10^3/uL (3.80-9.50) RBC 4.83 10^6/uL 10^6/uL (4.40-6.38) Hgb 15.8 g/dL g/dL (13.7-17.5) POC Hgb 17.3 gm/dL gm/dL (13.7-17.5) Hct 47.8 % % (40.0-51.0) POC Hct 51 % % (40-51) MCV 99.0 fL fL (81.5-99.8) MCH 32.7 pg pg (27.9-34.1) MCHC 33.1 g/dL g/dL (32.4-36.7) RDW 14.3 % % (11.5-15.2) Plt Count 194 10^3/uL 10^3/uL (150-400) MPV 10.2 fL fL (8.7-11.7) Neut % (Auto) 76.3 % H % (39.3-74.2) Lymph % (Auto) 7.7 % L % (15.0-45.0) [place] % (Auto) 11.6 % % (4.5-13.0) Eos % (Auto) 3.8 % % (0.6-7.6) Baso % (Auto) 0.2 % L % (0.3-1.7) Nucleat RBC Rel Count 0.0 % % (0.0-0.2) Absolute Neuts (auto) 6.37 10^3/uL 10^3/uL (1.70-6.50) Absolute Lymphs (auto) 0.64 10^3/uL L 10^3/uL (1.00-3.00) Absolute Monos (auto) 0.97 10^3/uL H 10^3/uL (0.30-0.80) Absolute Eos (auto) 0.32 10^3/uL 10^3/uL (0.03-0.40) Absolute Basos (auto) 0.02 10^3/uL 10^3/uL (0.02-0.10) Absolute Nucleated RBC 0.00 10^3/uL 10^3/uL (0-0.01) Immature Gran % 0.4 % % (0.0-1.1) Immature Gran # 0.03 10^3/uL 10^3/uL (0.00-0.10) POC Sodium 140 mEq/L mEq/L (135-145) Sodium 140 mEq/L mEq/L (135-145) POC Potassium 4.7 mEq/L mEq/L (3.3-5.0) Potassium 4.9 mEq/L mEq/L (3.3-5.0) POC Chloride 98 mEq/L mEq/L (97-110) Chloride 100 mEq/L mEq/L (97-110) Carbon Dioxide 31 mEq/l mEq/l (22-31) Anion Gap 9 mEq/L mEq/L (8-16) POC BUN 27 mg/dL H mg/dL (7-23) BUN 27 mg/dL H mg/dL (7-23) Creatinine 1.4 mg/dL H mg/dL (0.7-1.3) POC Creatinine 1.6 mg/dL H mg/dL (0.7-1.3) Estimated GFR 49 Glucose 133 mg/dL H mg/dL (70-100) POC Glucose 139 mg/dL H mg/dL (70-100) Calcium 9.4 mg/dL mg/dL (8.5-10.4) Medications Given: Discontinued Medications Fentanyl (Sublimaze) 100 mcg IVP EDNOW ONE Stop: 04/19/18 09:23 Last Admin: 04/19/18 09:37 Dose: 100 mcg Point of Care Test Results: Chemistry 04/19/18 09:35 POC Sodium 140 mEq/L mEq/L (135-145) POC Potassium 4.7 mEq/L mEq/L (3.3-5.0) POC Chloride 98 mEq/L mEq/L (97-110) POC BUN 27 mg/dL H mg/dL (7-23) POC Creatinine 1.6 mg/dL H mg/dL (0.7-1.3) POC Glucose 139 mg/dL H mg/dL (70-100) ISTAT H&H 04/19/18 09:35 POC Hgb 17.3 gm/dL gm/dL (13.7-17.5) POC Hct 51 % % (40-51) Departure - Departure Disposition: [facility] Inpatient Acute Clinical Impression: Postoperative ileus, Acute abdominal pain Condition: Good Referrals: Peng Jasso MD [Primary Care Provider] - As per Instructions
[2018-04-19] MEDS ORDERED: fentaNYL 100 MCG/2 ML INJ IVP ONE (09:22)
[2018-04-19 09:45] LABS: PLATELET COUNT 194 10^3/uL (150-400)
[2018-04-19] MEDS ORDERED: ONDANSETRON 4 MG/2 ML VIAL IVP PRN (13:07)
[2018-04-19] MEDS: D5W 1/2 NS W/ 20 KCl/L 1,000 ML IV SCH ×2 (13:13→20:23)
[2018-04-19] MEDS: KETOROLAC 30 MG/1 ML SDV IVP PRN ×2 (13:18→19:40)
--- NOTE | 2018-04-19 16:45 | ASMTCMCOM ---
CM Note CM Note Notes: Pt's chart reviewed for D/C planning. Pt is a 77 y/o male who presented at the ED with c/o abdominal distension and moderate pain following hernia repair at the out-pt surgery center yesterday. The Pt is retired. His is Britney, #[phone] (cell), . CM to follow. D/C Plan: TBD Date Signed: 04/19/2018 04:44 PM Electronically Signed By:Ines Lombardi
[2018-04-19] MEDS ORDERED: DIAZEPAM 5 MG TAB PO PRN (23:50)
[2018-04-20] MEDS: KETOROLAC 30 MG/1 ML SDV IVP PRN ×2 (04:13→10:59)
[2018-04-20] MEDS ORDERED: ONDANSETRON DISINTEGRATING 4 MG TAB PO PRN (07:58)
[2018-04-20] MEDS: METOPROLOL TARTRATE 25 MG TAB PO SCH ×2 (08:07→22:33)
[2018-04-20] MEDS: DULoxetine 20 MG CAP PO SCH ×2 (08:07→22:33)
[2018-04-20] MEDS: D5W 1/2 NS W/ 20 KCl/L 1,000 ML IV SCH ×3 (10:06→22:21)
[2018-04-20] MEDS: METOCLOPRAMIDE 10 MG/2 ML VIAL IVP SCH ×3 (11:16→23:37)
[2018-04-20 18:52] LABS: PLATELET COUNT 187 10^3/uL (150-400)
[2018-04-20] MEDS: LORazepam 2 MG/ML INJ IVP PRN ×2 (18:55→22:10)
[2018-04-20] MEDS ORDERED: BUPIVACAINE 0.5% 30 ML SDV ONE (18:56)
[2018-04-20] MEDS ORDERED: NS 1,000 ML IV ONE (19:00)
[2018-04-20] MEDS ORDERED: DEXAMETHASONE 4 MG/ML VIAL IVP PRN (19:10)
[2018-04-20] MEDS ORDERED: ALBUTEROL 3 ML DEYVIAL IH PRN (19:10)
[2018-04-20] MEDS ORDERED: ACETAMINOPHEN 500 MG TAB PO PRN (19:10)
[2018-04-20] MEDS ORDERED: ONDANSETRON 4 MG/2 ML VIAL IVP PRN (19:10)
[2018-04-20] MEDS ORDERED: HYDROmorphONE/DILAUDID 1 MG/ML INJ IVP PRN (19:10)
[2018-04-20] MEDS ORDERED: NS 500 ML IV PRN (19:10)
[2018-04-20] MEDS ORDERED: oxyCODONE IR 5 MG TAB PO PRN (19:10)
[2018-04-20] MEDS ORDERED: fentaNYL 100 MCG/2 ML INJ IVP PRN (19:10)
[2018-04-20] MEDS ORDERED: HYDROCODONE/APAP 5/325 TAB PO PRN (19:10)
[2018-04-20] MEDS ORDERED: NALOXONE HCL 0.4 MG/ML INJ IVP PRN ×3 (19:10→22:55)
[2018-04-20] MEDS ORDERED: ROCURONIUM 50 MG/5 ML VIAL ONE ×2 (19:20→20:35)
[2018-04-20] MEDS ORDERED: fentaNYL 100 MCG/2 ML INJ ONE ×2 (19:20→20:03)
[2018-04-20] MEDS ORDERED: PROPOFOL 200 MG/20 ML VIAL ONE (19:20)
--- NOTE | 2018-04-20 19:21 | SOAPPROG ---
SOAP Progress Note Assessment/Plan: Assessment: still very distended and in pain, no emesis, afebrile/ wbc ok pt refuses ng and would rather go to surgery abd soft but minimal bs/ wound ok/ uo has been low risks and options fully discussed Plan:laparotomy tonite 04/20/18 19:18 Objective: Vital Signs Temp Pulse Resp BP Pulse Ox 37.2 C 66 16 135/82 H 92 04/20/18 19:16 04/20/18 19:16 04/20/18 19:16 04/20/18 19:16 04/20/18 19:16 Laboratory Results 04/20/18 18:45 04/20/18 18:45 04/19/18 04/20/18 04/21/18 05:59 05:59 05:59 Intake Total 787 2741 Output Total 250 Balance 787 7422 ICD10 Worksheet Patient Problems: Problems Problem Status Onset Acute abdominal pain Acute Postoperative ileus Acute Adenocarcinoma of prostate, stage 2 Acute C. difficile diarrhea Acute Quadriceps tendon rupture Acute Transient global amnesia Acute
--- NOTE | 2018-04-20 19:26 | PDGENHP ---
History & Physical Chief Complaint: abd pain History of Present Illness: male with VH repair 2days ago/ doing great until last nite after giant meal. now very distended and in pain. nofever, emesis or diarhea. admit forobs. ct scan unrevealing except distention Pertinent Past, Social, Family History: pmh: radical prostatectomy, lap leonela. meds cymbalta. NKA. ros- except that he had similar prolonged ileus after prostatectomy. social: no tob. fam hx noncontributory Relevant Physical Exam: gen: healthy but uncomfortable. heent nonicteric, perrla, no nodes. neck supple. chest clear. cor rr. abd distended, diffusely distended, decreased bs, wound ok, no hernias. gen ok. neuro physiologic. psych alert, oriented, anxious, cooperative Cardiorespiratory Assessment: imp: postop ileus. plan admit for obs/ pt adamantly refuses ng tube
[2018-04-20] MEDS ORDERED: ceFAZolin 1 GM VIAL ONE ×2 (19:52→19:53)
[2018-04-20] MEDS ORDERED: ONDANSETRON 4 MG/2 ML VIAL ONE (20:27)
--- NOTE | 2018-04-20 20:39 | PDANEPAE ---
ANE History of Present Illness EX Lap ANE Past Medical History - Cardiovascular History Hx Hypertension: No Hx Arrhythmias: Yes Hx Chest Pain: No Hx Coronary Artery / Peripheral Vascular Disease: No Hx CHF / Valvular Disease: No Hx Palpitations: No Cardiovascular History Comment: afib. pvc's. hyperlipidemia. hypercholesterolemia - Pulmonary History Hx COPD: No Hx Asthma/Reactive Airway Disease: No Hx Recent Upper Respiratory Infection: No Hx Oxygen in Use at Home: No Hx Sleep Apnea: No Sleep Apnea Screening Result - Last Documented: Positive - Neurologic History Hx Cerebrovascular Accident: No Hx Seizures: No Hx Dementia: No - Endocrine History Hx Diabetes: No - Renal History Hx Renal Disorders: Yes Renal History Comment: hx of prostate ca. prostatectomy 10/2016 - Liver History Hx Hepatic Disorders: No - Neurological & Psychiatric Hx Hx Neurological and Psychiatric Disorders: Yes Neurological / Psychiatric History Comment: anxiety. depression - Cancer History Hx Cancer: Yes Cancer History Comment: prostate ca 10/2016 - Congenital Disorder History Hx Congenital Disorders: No - GI History Hx Gastrointestinal Disorders: Yes Gastrointestinal History Comment: hx c-diff 10/2016. hx of ileus 10/2016- [facility] followed pt. ibs - Other Health History Other Health History: wears glasses. bilateral knees are still stiff from surgery 11/2016- doing PT still - Chronic Pain History Chronic Pain: No - Surgical History Prior Surgeries: 10/13/16 radical prostatectomy with pepito dan, ileus. 2016 left quadraceps repair with les. leonela. discectomy. rtc repair. tonsillectomy ANE Review of Systems Review of Systems: ANE Patient History - Allergies Allergies/Adverse Reactions: No Known Allergies Allergy (Verified 04/16/18 12:12) - Home Medications Home Medications: Diazepam [Valium 5 MG (*)] 5 mg PO BID PRN 04/19/18 [Last Taken Unknown] Duloxetine HCl [Cymbalta] 20 mg PO BID 04/19/18 [Last Taken 04/19/18] Metoprolol Tartrate [Lopressor 25 mg (*)] 25 mg PO BID 04/19/18 [Last Taken ] Ondansetron Odt [Zofran Odt 4 mg (*)] 4 mg PO Q6H PRN 04/19/18 [Last Taken 04/19 07:00] oxyCODONE/APAP 5/325 [Percocet 5/325 (*)] 1 - 2 tab PO Q4H PRN 04/19/18 [Last Taken 04/19/18 07:00] - NPO status NPO Since - Liquids (Date): 04/20/18 NPO Since - Liquids (Time): 16:00 NPO Since - Solids (Date): 04/19/18 - Smoking Hx Smoking Status: Never smoked - Family Anes Hx Family Hx Anesthesia Complications: none ANE Labs/Vital Signs - Labs Result Diagrams: 04/20/18 18:45 04/20/18 18:45 - Vital Signs Blood Pressure: 165/102 Heart Rate: 66 Respiratory Rate: 8 O2 Sat (%): 92 Height: 193.04 cm Weight: 104.326 kg ANE Physical Exam - Airway Neck exam: FROM Mallampati Score: Class 2 Mouth exam: normal dental/mouth exam - Pulmonary Pulmonary: clear to auscultation - Cardiovascular Cardiovascular: regular rate and rhythym - ASA Status ASA Status: II ANE Anesthesia Plan Anesthesia Plan: general endotracheal anesthesia
[2018-04-20] MEDS ORDERED: SUGAMMADEX SODIUM 200 MG/2 ML VIAL IVP ONE (20:41)
[2018-04-20] MEDS ORDERED: LABETALOL HCL 5 MG/ML 20 ML MDV ONE (21:07)
[2018-04-20] MEDS ORDERED: LABETALOL HCL 5 MG/ML 20 ML MDV IVP PRN (21:10)
--- NOTE | 2018-04-20 21:11 | POSTANESTH ---
Post Anesthetic Evaluation Cardiovascular Status: Normal, Stable Respiratory Status: Normal, Stable Level of Consciousness/Mental Status: Can Participate in Eval, Alert and Oriented Pain Control: Adequate, Prn Tx Ordered Nausea/Vomiting Control: Adequate, Prn Tx Ordered
[2018-04-20] MEDS: HYDROmorphONE/DILAUDID 6 MG/30 ML PCA IV PRN (23:11)
[2018-04-21 05:22] LABS: PLATELET COUNT 186 10^3/uL (150-400)
[2018-04-21] MEDS: METOCLOPRAMIDE 10 MG/2 ML VIAL IVP SCH ×3 (06:44→18:18)
--- NOTE | 2018-04-21 07:43 | PDMN ---
Medical Necessity Medical necessity: Pt meets IP criteria per MD & MCG M-200; est los >2 mn for eval/tx of postop ileus w/pain & distention s/p VH repair; requiring further monitoring, Dilaudid MARBLE CARVER, NPO status, IVFs & surgical intervention; per H&P & order 04/19/18
[2018-04-21] MEDS ORDERED: CEPACOL LOZENGE PO PRN (08:07)
[2018-04-21] MEDS: DULoxetine 20 MG CAP PO SCH ×2 (08:30→21:24)
[2018-04-21] MEDS: METOPROLOL TARTRATE 25 MG TAB PO SCH ×2 (08:31→21:24)
[2018-04-21] MEDS: NS 1,000 ML IV SCH (08:50)
[2018-04-21] MEDS: LORazepam 2 MG/ML INJ IVP PRN ×3 (08:50→19:24)
[2018-04-21] MEDS: METHYLNALTREXONE BROMIDE 12 MG/0.6 ML INJ SC SCH (08:50)
[2018-04-21] MEDS: PHENOL 177 ML THROAT SPRAY PO PRN (08:51)
--- NOTE | 2018-04-21 10:53 | SOAPPROG ---
SOAP Progress Note Assessment/Plan: Assessment: 77yo M POD#1 s/p ex-lap for SBO - really no definite pathology seen, bowel very distended - NGT putting out a lot of fluid, want to keep at least 24hrs. Discussed with pt - NPO. Added cepacol for throat - ED[employer]ER - ambulate Plan: 04/21/18 10:52 Subjective: wants NG out Objective: Vital Signs Temp Pulse Resp BP Pulse Ox 36.9 C 72 14 111/70 90 L 04/21/18 08:00 04/21/18 08:00 04/21/18 08:00 04/21/18 08:00 04/21/18 08:00 Laboratory Results 04/21/18 04:45 04/21/18 04:45 04/20/18 04/21/18 04/22/18 05:59 05:59 05:59 Intake Total 784 6240 Output Total 665 Balance 508 2449 ICD10 Worksheet Patient Problems: Problems Problem Status Onset Acute abdominal pain Acute Postoperative ileus Acute Adenocarcinoma of prostate, stage 2 Acute C. difficile diarrhea Acute Quadriceps tendon rupture Acute Transient global amnesia Acute
--- NOTE | 2018-04-21 12:18 | ASMTCMCOM ---
CM Note CM Note Notes: Spoke w/RN, pt still has NG in but anticipate pt will dc home with support of , when medically stable. CM availble for any changes. DC Plan: Independent Date Signed: 04/21/2018 12:12 PM Electronically Signed By:Hanh Hannah RN
[2018-04-21] MEDS: HYDROmorphONE/DILAUDID 6 MG/30 ML PCA IV PRN (19:29)
[2018-04-22] MEDS: METOCLOPRAMIDE 10 MG/2 ML VIAL IVP SCH ×5 (00:46→23:46)
[2018-04-22] MEDS: LORazepam 2 MG/ML INJ IVP PRN ×2 (00:46→04:34)
[2018-04-22] MEDS: NS 1,000 ML IV SCH ×3 (01:27→23:48)
[2018-04-22] MEDS: METOPROLOL TARTRATE 25 MG TAB PO SCH ×2 (08:28→20:16)
[2018-04-22] MEDS: DULoxetine 20 MG CAP PO SCH ×2 (08:28→20:16)
[2018-04-22] MEDS: METHYLNALTREXONE BROMIDE 12 MG/0.6 ML INJ SC SCH (10:35)
[2018-04-22] MEDS: PHENOL 177 ML THROAT SPRAY PO PRN (13:20)
--- NOTE | 2018-04-22 15:01 | SOAPPROG ---
SOAP Progress Note Assessment/Plan: Assessment: 77yo M POD#2 s/p ex-lap for SBO - NGT still with high output - KUB about the same, he is passing some flatus - continue current care Plan: 04/21/18 10:52 04/22/18 15:00 Subjective: wants NGT out Objective: Vital Signs Temp Pulse Resp BP Pulse Ox 36.9 C 82 16 128/79 H 93 04/22/18 11:42 04/22/18 11:42 04/22/18 11:42 04/22/18 11:42 04/22/18 11:42 Laboratory Results 04/21/18 04:45 04/21/18 13:13 04/21/18 04/22/18 04/23/18 05:59 05:59 05:59 Intake Total 3441 2180 1338 Output Total 665 1475 Balance 2776 161 9659 ICD10 Worksheet Patient Problems: Problems Problem Status Onset Acute abdominal pain Acute Postoperative ileus Acute Adenocarcinoma of prostate, stage 2 Acute C. difficile diarrhea Acute Quadriceps tendon rupture Acute Transient global amnesia Acute
[2018-04-22] MEDS: DIAZEPAM 5 MG/ML 1 ML SYR IVP PRN (20:10)
[2018-04-23] MEDS: METOCLOPRAMIDE 10 MG/2 ML VIAL IVP SCH ×4 (05:17→23:25)
[2018-04-23] MEDS: LORazepam 2 MG/ML INJ IVP PRN ×2 (08:17→08:37)
[2018-04-23] MEDS: METHYLNALTREXONE BROMIDE 12 MG/0.6 ML INJ SC SCH (09:52)
[2018-04-23] MEDS: DULoxetine 20 MG CAP PO SCH ×2 (09:52→20:11)
[2018-04-23] MEDS: METOPROLOL TARTRATE 25 MG TAB PO SCH ×2 (09:52→20:11)
--- NOTE | 2018-04-23 10:13 | SOAPPROG ---
SOAP Progress Note Assessment/Plan: Assessment: still very distended and in pain, no emesis, afebrile/ wbc ok pt refuses ng and would rather go to surgery abd soft but minimal bs/ wound ok/ uo has been low risks and options fully discussed Plan:laparotomy tonite 04/20/18 19:18 04/23/18 10:11 STILL CO PAIN/ DISTENTION PERSISTS BUT LESS/ WOUND OK/ MINIMAL MACHO OUT SOME FLATUS AND SOME BS/ PLAN CONTINUE RELISTOR, AMBULATION, CLEARS Objective: Vital Signs Temp Pulse Resp BP Pulse Ox 37.1 C 91 16 146/94 H 90 L 04/23/18 08:00 04/23/18 08:00 04/23/18 08:00 04/23/18 08:00 04/23/18 08:00 Laboratory Results 04/21/18 04:45 04/21/18 13:13 04/22/18 04/23/18 04/24/18 05:59 05:59 05:59 Intake Total 2180 1338 Output Total 5161 336 Balance 708 180 ICD10 Worksheet Patient Problems: Problems Problem Status Onset Acute abdominal pain Acute Postoperative ileus Acute Adenocarcinoma of prostate, stage 2 Acute C. difficile diarrhea Acute Quadriceps tendon rupture Acute Transient global amnesia Acute
[2018-04-23] MEDS: NS 1,000 ML IV SCH ×2 (11:04→23:25)
[2018-04-23] MEDS: HYDROmorphONE/DILAUDID 6 MG/30 ML PCA IV PRN (12:05)
[2018-04-23] MEDS ORDERED: ZOLPIDEM TARTRATE 5 MG TAB PO PRN (18:18)
[2018-04-24] MEDS: METOCLOPRAMIDE 10 MG/2 ML VIAL IVP SCH ×3 (06:00→18:18)
[2018-04-24] MEDS: METHYLNALTREXONE BROMIDE 12 MG/0.6 ML INJ SC SCH (09:00)
[2018-04-24] MEDS: DULoxetine 20 MG CAP PO SCH ×2 (09:00→20:21)
[2018-04-24] MEDS: METOPROLOL TARTRATE 25 MG TAB PO SCH ×2 (09:00→20:21)
[2018-04-24] MEDS: NS 1,000 ML IV SCH (13:25)
--- NOTE | 2018-04-24 13:26 | ASMTCMCOM ---
CM Note CM Note Notes: CM spoke to LUIGI Kang regarding d/c POC. Pt had his NG taken out. Pt has gas/bowel sounds. Pt will d/c independent when medically stable. CM available for changes. Plan: Independent Date Signed: 04/24/2018 01:25 PM Electronically Signed By:LEENA Cuevas
--- NOTE | 2018-04-24 17:49 | SOAPPROG ---
EVA Progress Note Assessment/Plan: Assessment/Plan: 77 Y M s/p ventral hernia repair and exlap for SBO. Seen and examined with Dr. Connor [facility] Patient examined while walking in halls. Still seems to have ileus on exam--abdomen distended--although some gas and stool. AXR ordered for am. Continue clears. Ambulate. Pain is better. D/w'ed pt's daughter, an RN, and floor nurses. 04/24/18 17:47 Objective: Vital Signs Temp Pulse Resp BP Pulse Ox 36.7 C 88 18 152/94 H 94 04/24/18 16:00 04/24/18 16:00 04/24/18 16:00 04/24/18 16:00 04/24/18 16:00 Laboratory Results 04/21/18 04:45 04/21/18 13:13 04/23/18 04/24/18 04/25/18 05:59 05:59 05:59 Intake Total 1338 1400 Output Total 675 10 2 Balance 663 1390 -2 ICD10 Worksheet Patient Problems: Problems Problem Status Onset Acute abdominal pain Acute Postoperative ileus Acute Adenocarcinoma of prostate, stage 2 Acute C. difficile diarrhea Acute Quadriceps tendon rupture Acute Transient global amnesia Acute
[2018-04-24] MEDS: DIAZEPAM 5 MG/ML 1 ML SYR IVP PRN (22:30)
[2018-04-25] MEDS: METOCLOPRAMIDE 10 MG/2 ML VIAL IVP SCH ×5 (00:48→23:27)
[2018-04-25] MEDS: HYDROmorphONE/DILAUDID 6 MG/30 ML PCA IV PRN (03:23)
[2018-04-25] MEDS: DULoxetine 20 MG CAP PO SCH ×2 (08:23→20:30)
[2018-04-25] MEDS: METOPROLOL TARTRATE 25 MG TAB PO SCH ×2 (08:23→20:29)
[2018-04-25] MEDS: METHYLNALTREXONE BROMIDE 12 MG/0.6 ML INJ SC SCH (09:49)
--- NOTE | 2018-04-25 10:54 | SOAPPROG ---
SOAP Progress Note Assessment/Plan: Assessment/Plan: 77 Y M s/p ventral hernia repair and exlap for SBO. AXR largely unchanged. Still with dilated loops of bowels with air fluid levels. Passing gas and some loose stools. Recommended starting TPN. Pt and daughter, an RN, wanting to wait. It's been 8 days since a normal meal. Will hold off, but need to start this in next day or two if not able to take normal PO. Continue clears for now. S: pain is better. feeling less tightness after taking clears. O: alert, nad no wob rrr abd softer but distended, +mildly tympanic BS, inc cdi, +ecchymosis, no erythema. 04/25/18 10:50 Objective: Vital Signs Temp Pulse Resp BP Pulse Ox 36.4 C 69 19 147/89 H 94 04/25/18 08:00 04/25/18 08:23 04/25/18 08:00 04/25/18 08:23 04/25/18 08:00 Laboratory Results 04/21/18 04:45 04/21/18 13:13 04/24/18 04/25/18 04/26/18 05:59 05:59 05:59 Intake Total 1400 2905 Output Total 10 22 Balance 1390 2883 ICD10 Worksheet Patient Problems: Problems Problem Status Onset Acute abdominal pain Acute Postoperative ileus Acute Adenocarcinoma of prostate, stage 2 Acute C. difficile diarrhea Acute Quadriceps tendon rupture Acute Transient global amnesia Acute
[2018-04-25] MEDS: NS 1,000 ML IV SCH (17:43)
[2018-04-25] MEDS: DIAZEPAM 5 MG/ML 1 ML SYR IVP PRN (20:48)
[2018-04-26] MEDS: DIAZEPAM 5 MG/ML 1 ML SYR IVP PRN ×2 (03:43→20:15)
[2018-04-26] MEDS: NS 1,000 ML IV SCH ×3 (05:20→23:38)
[2018-04-26] MEDS: METOCLOPRAMIDE 10 MG/2 ML VIAL IVP SCH ×4 (05:20→23:38)
[2018-04-26] MEDS: DULoxetine 20 MG CAP PO SCH ×2 (09:52→20:15)
[2018-04-26] MEDS: METOPROLOL TARTRATE 25 MG TAB PO SCH ×2 (09:52→20:15)
--- NOTE | 2018-04-26 11:03 | SOAPPROG ---
[facility] Progress Note Assessment/Plan: Assessment: 77 y/o M s/p lap inguinal hernia repair and ex lap for SBO POD#6 Abdominal xray from this am remains unchanged with dilated loops of bowel S: Still c/o abdominal distension and discomfort. Has passed some gas and liquid stool. Tolerating clear liquids. O: Alert Afebrile No increased WOB Abdomen: incision cdi, soft, but distended, +bowel sounds Plan: GI to see later today, per pt's request. I discussed possibly getting a small bowel follow through, which pt and family are agreeable to. Will touch base with pt after GI consult. 04/26/18 10:55 Objective: Vital Signs Temp Pulse Resp BP Pulse Ox 36.6 C 71 18 161/89 H 95 04/26/18 08:00 04/26/18 09:52 04/26/18 08:00 04/26/18 09:52 04/26/18 08:00 Laboratory Results 04/21/18 04:45 04/21/18 13:13 04/25/18 04/26/18 04/27/18 05:59 05:59 05:59 Intake Total 2905 1050 Output Total 22 Balance 2883 1050 ICD10 Worksheet Patient Problems: Problems Problem Status Onset Acute abdominal pain Acute Postoperative ileus Acute Adenocarcinoma of prostate, stage 2 Acute C. difficile diarrhea Acute Quadriceps tendon rupture Acute Transient global amnesia Acute
[2018-04-26] MEDS ORDERED: LISINOPRIL 5 MG TAB PO ONE (12:00)
[2018-04-26] MEDS: METHYLNALTREXONE BROMIDE 12 MG/0.6 ML INJ SC SCH (12:14)
--- NOTE | 2018-04-26 13:38 | GCON ---
[f rep st] CONSULTATION INPATIENT CONSULTATION NOTE REFERRING PHYSICIAN: Ric Connor MD REASON FOR CONSULTATION: Abdominal pain. CHIEF COMPLAINT: Abdominal pain. HISTORY OF PRESENT ILLNESS: I was asked by Dr. Connor to evaluate the patient for abdominal pain and abdominal distention. He is a pleasant 77-year-old male, who underwent ventral hernia repair on 2017. This ventral hernia repair was uncomplicated, and he was discharged home. Over the 2-3 days postoperatively, he began to have abdominal distention and abdominal pain. He was readmitted t o the hospital. He underwent exploratory laparotomy to rule out the possibility of a surgical compli cation or a missed surgical obstruction. His 2nd operation was uneventful. Since that time, he has had slow return of function of his bowels. His clinical presentation, x-ray findings, et cetera are consistent with ileus. Of note, he has had a prior similar prolonged ileus after a prostatectomy. Of note, that ileus was c omplicated by C difficile development (according to his history). He has been in the hospital approximately 1 week. During that time, he is managing to tolerate some clear liquids. He is having some flatus and passing small liquid stools. His abdominal x-rays are g radually improving, although still show air-fluid levels. He has had no fever. He reports no nausea or vomiting. He had an NG tube briefly, but reports that he did not tolerate this well. PAST MEDICAL HISTORY: Includes prostatectomy, laparoscopic cholecystectomy. OUTPATIENT MEDICINES: Cymbalta. ALLERGIES: None. FAMILY HISTORY: Negative for ileus, colon cancer, or colon polyps. SOCIAL HISTORY: He does not smoke. REVIEW OF SYSTEMS: A complete 14-point review was undertaken with the patient and is negative except for those details described in the History of Present Illness. PHYSICAL EXAM: GENERAL: This is a well-developed male, in no apparent distress. HEENT: His pupils are equal, round, reactive to light and accommodation. His sclerae are nonicteric. His oropharynx is clear. NECK: Supple without lymphadenopathy. HEART: Regular without murmur. ABDOMEN: Soft, b ut distended. He has hypoactive bowel sounds. There are no tinkles or rushes. He has mild tenderne ss throughout the abdomen. His surgical incision appears to be healing well. EXTREMITIES: Free of cyanosis, clubbing, and edema. NEURO: Grossly nonfocal. SKIN: Warm and dry. JOINTS: Show no art hritis. PSYCH: Reveals normal mood and affect. LABORATORY TESTING: Shows a white count of 8.29, hemoglobin of 14.4, hematocrit of 43.6, MCV of 98.4 , platelet count of 186. Sodium of 136, potassium of 4.9, chloride of 105, bicarb of 25, BUN of 25, creatinine of 1.2. Liver function tests are normal. He has had multiple x-rays over the time that chikis florez has been here. CT scan of the abdomen and pelvis on 04/19/2018 revealed dilated loops of small bow el. Subsequent plain x-rays over the last several days have showed gradually improving, but still pr esent, evidence of adynamic ileus. ASSESSMENT: The patient is a 77-year-old male with a past medical history significant for prolonged ileus after surgery. He has had normal bowel movements and normal eating habits until the time of presentation. I suspect his current presentation is that of recurrent ileus. Ileus is more commo n in patients who have undergone abdominal surgery, who are over the age of 75, and have had prior hi story of ileus. He certainly meets these criteria. At this point, I have a low suspicion for true p artial obstruction or other mechanical obstruction. Luckily, his x-rays are gradually improving. He is ambulatory. He is tolerating small amounts of clear liquids. He is having small amounts of flat us and semi-formed bowel movements. RECOMMENDATIONS: At this time, I recommend just continued supportive care. Minimizing narcotics and analgesics. He can continue to eat small amounts of clear liquids. He may take some additional jatinder e to resolve this ileus, given his history. Should he worsen, with increasing abdominal distention or abdominal pain, we will have to revisit thi s plan. Replacement of NG tube, additional imaging, etc. could be considered at that time. It is okay for him to continue his Relistor. I will defer to the primary care/surgical care teams as to whether or not TPN is useful (although the patient appears to have a good nutritional reserve). There is no indication at this time for endoscopic evaluation. Small bowel x-ray could be useful to rule out obstruction, but the concern for obstruction is relatively low at this point. If possible, would discontinue all narcotics and analgesics as well as all sedatives and hypnotics. At this time, I will sign off the patient's care. Please call back if there are any changes in his [facility] health or other questions that arise. /[id number]/MODL
--- NOTE | 2018-04-26 15:51 | ASMTCMCOM ---
CM Note CM Note Notes: Pt had GI consult today since he was still quite distended. Per GI note, no interventions ordered, will continue supportive care. Pt otherwise independent and will dc home w/support of when medically stable. CM availble should this change. DC Plan: Independent Date Signed: 04/26/2018 03:51 PM Electronically Signed By:Hanh Hannah RN
[2018-04-27] MEDS: HYDROmorphONE/DILAUDID 1 MG/ML INJ IVP PRN ×2 (00:52→00:53)
[2018-04-27] MEDS: METOCLOPRAMIDE 10 MG/2 ML VIAL IVP SCH ×2 (06:16→12:04)
[2018-04-27] MEDS: NS 1,000 ML IV SCH (06:17)
[2018-04-27] MEDS: DULoxetine 20 MG CAP PO SCH (08:43)
[2018-04-27] MEDS: METOPROLOL TARTRATE 25 MG TAB PO SCH (08:43)
[2018-04-27] MEDS: METHYLNALTREXONE BROMIDE 12 MG/0.6 ML INJ SC SCH (09:23)
--- NOTE | 2018-04-27 10:08 | SOAPPROG ---
SOAP Progress Note Assessment/Plan: Assessment: still very distended and in pain, no emesis, afebrile/ wbc ok pt refuses ng and would rather go to surgery abd soft but minimal bs/ wound ok/ uo has been low risks and options fully discussed Plan:laparotomy tonite 04/20/18 19:18 04/23/18 10:11 STILL CO PAIN/ DISTENTION PERSISTS BUT LESS/ WOUND OK/ MINIMAL MACHO OUT SOME FLATUS AND SOME BS/ PLAN CONTINUE RELISTOR, AMBULATION, CLEARS 04/27/18 10:06 PT FEELS BETTER/ WOUND OK/ AFEBRILE/ STILL DISTENDED BUT IMPROVING/ SOME FLATUS AND BM SLEEPING POORLY/ WANTS TO GO HOME Objective: Vital Signs Temp Pulse Resp BP Pulse Ox 36.7 C 68 16 158/97 H 94 04/27/18 08:00 04/27/18 08:43 04/27/18 08:00 04/27/18 08:48 04/27/18 08:00 Laboratory Results 04/21/18 04:45 04/21/18 13:13 04/26/18 04/27/18 04/28/18 05:59 05:59 05:59 Intake Total 1050 3581 Output Total 950 Balance 1050 2961 ICD10 Worksheet Patient Problems: Problems Problem Status Onset Acute abdominal pain Acute Postoperative ileus Acute Adenocarcinoma of prostate, stage 2 Acute C. difficile diarrhea Acute Quadriceps tendon rupture Acute Transient global amnesia Acute
[2018-04-27 15:13] VITALS: BP 158/95
--- NOTE | 2018-05-03 19:27 | GOP ---
[f rep st] OPERATIVE REPORT DATE OF OPERATION: 04/20/2018 SURGEON: Ric Connor MD ANESTHESIOLOGIST: Dr. Johnson. PREOPERATIVE DIAGNOSIS: Ileus, possible bowel obstruction. POSTOPERATIVE DIAGNOSIS: Ileus. PROCEDURE PERFORMED: Exploratory laparotomy. FINDINGS: The patient was found to have an intact ventral hernia repair. Intraabdominal findings in cluded markedly distended small bowel from the ligament of Treitz all the way to the right colon incl uding part of the right colon with no evidence of obstruction. No evidence of perforation. No evide nce of infection or abscess or any major intraabdominal problem other than ileus. DESCRIPTION OF PROCEDURE: The patient was taken to the operating room, where he received a satisfact ory general endotracheal anesthesia by Dr. Johnson. He was placed in the supine position, prepped and draped in the usual sterile fashion. A transverse incision was made in the lower abdomen through his previous incision. Dissection was carried down to the fascia. The hernia repair was opened up. Th e mesh was intact and removed with no evidence of any injury. The peritoneum was opened. The abdome n revealed no bad fluid or bad smells. The bowel was markedly dilated. This required extending the incision on either side of the hernia defect to allow adequate exposure. The bowel was eviscerated a nd it was markedly dilated and distended, but there was no evidence of obstruction. No single probab le area. No internal hernias could be found. The bowel was examined from the ligament of Treitz all the way to the right colon with no evidence of any major difficulties. It was, however, now difficu lt to get the bowel back into the abdomen. An NG tube had been placed and a large amount of intestin al fluid was milked back up toward the stomach and suction out the NG tube, allowing some decompensat ion of the small bowel. The abdomen was then closed in layers using a running 0 Vicryl for the poste rior rectus sheath bilaterally and a running #1 PDS suture for the anterior rectus sheath. Where the hernia defect had previously been was reinforced with interrupted 0 PDS [id number] sutures. Araiza bcu was closed with 3-0 Vicryl and the skin with a 4-0 Monocryl subcuticular suture. The wound was i nfiltrated with 0.5% Marcaine. He tolerated the procedure well. There were no complications. Blood loss was negligible. He was taken to the recovery room in good condition. There was no retail store assistant. /[id number]/MODL
== END 2018-04-27 17:03 | disposition home or self-care (01) | DRG 358 ==
LOC: F3E 12:51 → OBSVTOIN 15:54
PROVIDERS: ADMIT Surgery; ATTEND Surgery
PROC: 0WJG0ZZ Inspection of Peritoneal Cavity, Open Approach (ICD-10-PCS; principal; 2018-04-20 19:15)
DX: K91.89 Other postprocedural complications and disorders of digestive system (principal); Z85.46 Personal history of malignant neoplasm of prostate; I48.91 Unspecified atrial fibrillation
CPT/HCPCS: 82435-PO; 82565-PO; 82947-PO; 84132-PO; 84295-PO; 84520-PO; 85014-PO; 96374; C1781; J0690; J1100; J1170; J1885; J2060; J2212; J2250; J2270; J2405; J2704; J2765; J3010; J3360